=== PATIENT | female | born 1990 | race Caucasian/White ===

== ENCOUNTER 2020-12-19 08:17 | Outpatient (CLI) | payer OTHER | END 2020-12-19 23:59 | disposition home or self-care (01) | LOC: CT 08:17 | PROVIDERS: ATTEND Internal Medicine Nephrology | DX: S00.93XA Contusion of unspecified part of head, initial encounter (principal); G91.9 Hydrocephalus, unspecified; R22.0 Localized swelling, mass and lump, head; X58.XXXA Exposure to other specified factors, initial encounter; Y93.89 Activity, other specified; Y92.89 Other specified places as the place of occurrence of the external cause; Y99.8 Other external cause status | CPT/HCPCS: 70450 ==

== ENCOUNTER 2021-01-18 09:18 | Outpatient (CLI) | payer OTHER | END 2021-01-18 23:59 | disposition home or self-care (01) | LOC: RAD 09:18 | PROVIDERS: ATTEND Internal Medicine Nephrology | DX: G93.89 Other specified disorders of brain (principal); Z98.890 Other specified postprocedural states | CPT/HCPCS: 70450 ==

== ENCOUNTER 2021-02-17 10:53 | Outpatient (CLI) | payer OTHER | END 2021-02-17 23:59 | disposition home or self-care (01) | LOC: CT 10:53 | PROVIDERS: ATTEND Internal Medicine Nephrology | DX: G93.89 Other specified disorders of brain (principal); R56.9 Unspecified convulsions | CPT/HCPCS: 70450 ==

== ENCOUNTER 2021-04-02 08:36 | Outpatient (CLI) | payer OTHER | END 2021-04-02 23:59 | LOC: CT 08:36 | PROVIDERS: ATTEND Internal Medicine Nephrology | DX: N20.0 Calculus of kidney (principal); K44.9 Diaphragmatic hernia without obstruction or gangrene; Z95.828 Presence of other vascular implants and grafts ==

== ENCOUNTER 2021-05-31 | Inpatient (IN) | payer OTHER ==
[2021-06-01 07:55] LABS: HEMATOCRIT 30.1 % (31.2-41.9); MEAN CORPUSCULAR HEMOGLOBIN 29.5 uug (24.7-32.8); MEAN CORPUSCULAR VOLUME 86.7 fL (75.5-95.3); PLATELET COUNT (AUTO) 365 K/uL (179-408)
[2021-06-01 08:15] LABS: CREATININE 0.6 mg/dL (0.6-1.3); MAGNESIUM 1.7 mg/dL (1.8-2.4); PHOSPHOROUS 3.5 mg/dL (2.5-4.9); POTASSIUM 3.9 mmol/L (3.5-5.1)
[2021-06-02] MEDS ORDERED: GUAIFENESIN SUGAR FREE 100 MG/5 ML UDC GT PRN (11:00)
[2021-06-02] MEDS ORDERED: CALCIUM CARBONATE 500 MG TAB.CHEW PO PRN (11:00)
[2021-06-02] MEDS ORDERED: ACETAMINOPHEN 650 MG/20 ML UDC- SA PATIENTS-FEVER ONLY GT PRN (11:00)
[2021-06-02] MEDS ORDERED: HYDROGEN PEROXIDE 3% 118 ML BOTTLE TP PRN (11:00)
[2021-06-02] MEDS ORDERED: POLYVINYL ALCOHOL OPHT DROPS 15 ML BOTTLE EACHEYE PRN (11:00)
[2021-06-02] MEDS: DESMOPRESSIN 0.1 MG TABLET GT SCH ×2 (14:36→21:19)
[2021-06-02] MEDS: DEXAMETHASONE 0.5 MG TABLET GT SCH (17:58)
[2021-06-02] MEDS: HYDROGEN PEROXIDE 3% 118 ML BOTTLE TP SCH (20:56)
[2021-06-02] MEDS: CHLORHEXIDINE GLUCONATE 15 ML MOUTHWASH MM SCH (21:19)
[2021-06-02] MEDS: COD LIVER OIL/ZINC OXIDE OINT 113 GM TUBE TP SCH (21:19)
[2021-06-02] MEDS: levETIRAcetam 500 MG/5 ML LIQUID UDC GT SCH (21:19)
[2021-06-03] MEDS: LEVOTHYROXINE SODIUM 75 MCG TABLET GT SCH (05:47)
[2021-06-03] MEDS: DESMOPRESSIN 0.1 MG TABLET GT SCH ×3 (05:47→21:08)
[2021-06-03 07:32] LABS: HEMATOCRIT 29.4 % (31.2-41.9); MEAN CORPUSCULAR HEMOGLOBIN 29.4 uug (24.7-32.8); MEAN CORPUSCULAR VOLUME 86.5 fL (75.5-95.3); PLATELET COUNT (AUTO) 323 K/uL (179-408)
[2021-06-03 07:53] LABS: CREATININE 0.6 mg/dL (0.6-1.3); MAGNESIUM 1.9 mg/dL (1.8-2.4); PHOSPHOROUS 3.7 mg/dL (2.5-4.9); POTASSIUM 3.9 mmol/L (3.5-5.1)
[2021-06-03] MEDS: levETIRAcetam 500 MG/5 ML LIQUID UDC GT SCH ×2 (08:24→20:41)
[2021-06-03] MEDS: CHLORHEXIDINE GLUCONATE 15 ML MOUTHWASH MM SCH ×2 (08:24→20:41)
[2021-06-03] MEDS: DEXAMETHASONE 0.5 MG TABLET GT SCH ×2 (08:24→18:14)
[2021-06-03] MEDS: COD LIVER OIL/ZINC OXIDE OINT 113 GM TUBE TP SCH ×2 (08:24→20:41)
[2021-06-03] MEDS: HYDROGEN PEROXIDE 3% 118 ML BOTTLE TP SCH ×2 (10:00→21:49)
[2021-06-03] MEDS: MELATONIN 3 MG TABLET GT PRN (20:42)
[2021-06-04] MEDS: DESMOPRESSIN 0.1 MG TABLET GT SCH ×3 (05:56→22:15)
[2021-06-04] MEDS: LEVOTHYROXINE SODIUM 75 MCG TABLET GT SCH (05:56)
[2021-06-04] MEDS: COD LIVER OIL/ZINC OXIDE OINT 113 GM TUBE TP SCH ×2 (09:22→21:00)
[2021-06-04] MEDS: CHLORHEXIDINE GLUCONATE 15 ML MOUTHWASH MM SCH ×2 (09:22→21:00)
[2021-06-04] MEDS: DEXAMETHASONE 0.5 MG TABLET GT SCH ×2 (09:22→18:00)
[2021-06-04] MEDS: levETIRAcetam 500 MG/5 ML LIQUID UDC GT SCH ×2 (09:22→21:00)
[2021-06-04] MEDS: HYDROGEN PEROXIDE 3% 118 ML BOTTLE TP SCH ×2 (10:00→21:15)
[2021-06-04] MEDS: MELATONIN 3 MG TABLET GT PRN (22:15)
[2021-06-05] MEDS: LEVOTHYROXINE SODIUM 75 MCG TABLET GT SCH (05:33)
[2021-06-05] MEDS: DESMOPRESSIN 0.1 MG TABLET GT SCH ×3 (05:33→22:00)
[2021-06-05] MEDS: HYDROGEN PEROXIDE 3% 118 ML BOTTLE TP SCH ×2 (08:42→21:19)
[2021-06-05] MEDS: levETIRAcetam 500 MG/5 ML LIQUID UDC GT SCH ×2 (09:22→20:28)
[2021-06-05] MEDS: CHLORHEXIDINE GLUCONATE 15 ML MOUTHWASH MM SCH ×2 (09:22→20:29)
[2021-06-05] MEDS: DEXAMETHASONE 0.5 MG TABLET GT SCH ×2 (09:22→17:32)
[2021-06-05] MEDS: COD LIVER OIL/ZINC OXIDE OINT 113 GM TUBE TP SCH ×2 (09:22→20:29)
[2021-06-05] MEDS: ACETAMINOPHEN 650 MG/20 ML UDC- SA PATIENTS-PAIN ONLY GT PRN (20:29)
[2021-06-06] MEDS: LEVOTHYROXINE SODIUM 75 MCG TABLET GT SCH (05:19)
[2021-06-06] MEDS: DESMOPRESSIN 0.1 MG TABLET GT SCH ×3 (05:19→21:02)
[2021-06-06 07:08] LABS: HEMATOCRIT 30.1 % (31.2-41.9); MEAN CORPUSCULAR HEMOGLOBIN 29.4 uug (24.7-32.8); MEAN CORPUSCULAR VOLUME 86.1 fL (75.5-95.3); PLATELET COUNT (AUTO) 304 K/uL (179-408)
[2021-06-06 07:34] LABS: CREATININE 0.6 mg/dL (0.6-1.3)
[2021-06-06] MEDS: levETIRAcetam 500 MG/5 ML LIQUID UDC GT SCH ×2 (08:22→21:01)
[2021-06-06] MEDS: CHLORHEXIDINE GLUCONATE 15 ML MOUTHWASH MM SCH ×2 (08:22→21:01)
[2021-06-06] MEDS: COD LIVER OIL/ZINC OXIDE OINT 113 GM TUBE TP SCH ×2 (08:22→21:02)
[2021-06-06] MEDS: DEXAMETHASONE 0.5 MG TABLET GT SCH ×2 (08:22→17:13)
[2021-06-06] MEDS: HYDROGEN PEROXIDE 3% 118 ML BOTTLE TP SCH ×2 (09:00→21:11)
[2021-06-06] MEDS: ACETAMINOPHEN 650 MG/20 ML UDC- SA PATIENTS-PAIN ONLY GT PRN (21:02)
[2021-06-06] MEDS: MELATONIN 3 MG TABLET GT PRN (21:02)
[2021-06-07] MEDS: LEVOTHYROXINE SODIUM 75 MCG TABLET GT SCH (05:33)
[2021-06-07] MEDS: DESMOPRESSIN 0.1 MG TABLET GT SCH ×3 (05:33→21:03)
[2021-06-07] MEDS: HYDROGEN PEROXIDE 3% 118 ML BOTTLE TP SCH ×2 (09:00→21:26)
[2021-06-07] MEDS: COD LIVER OIL/ZINC OXIDE OINT 113 GM TUBE TP SCH ×2 (09:06→21:03)
[2021-06-07] MEDS: CHLORHEXIDINE GLUCONATE 15 ML MOUTHWASH MM SCH ×2 (09:06→21:03)
[2021-06-07] MEDS: levETIRAcetam 500 MG/5 ML LIQUID UDC GT SCH ×2 (09:06→21:03)
[2021-06-07] MEDS: DEXAMETHASONE 0.5 MG TABLET GT SCH ×2 (09:06→17:50)
[2021-06-07] MEDS: ACETAMINOPHEN 650 MG/20 ML UDC- SA PATIENTS-PAIN ONLY GT PRN (21:04)
[2021-06-08] MEDS: DESMOPRESSIN 0.1 MG TABLET GT SCH ×3 (05:29→21:04)
[2021-06-08] MEDS: LEVOTHYROXINE SODIUM 75 MCG TABLET GT SCH (05:29)
[2021-06-08] MEDS: HYDROGEN PEROXIDE 3% 118 ML BOTTLE TP SCH ×2 (09:19→21:17)
[2021-06-08] MEDS: CHLORHEXIDINE GLUCONATE 15 ML MOUTHWASH MM SCH ×2 (09:29→21:03)
[2021-06-08] MEDS: COD LIVER OIL/ZINC OXIDE OINT 113 GM TUBE TP SCH ×2 (09:29→21:03)
[2021-06-08] MEDS: DEXAMETHASONE 0.5 MG TABLET GT SCH ×2 (09:29→17:30)
[2021-06-08] MEDS: levETIRAcetam 500 MG/5 ML LIQUID UDC GT SCH ×2 (09:29→21:03)
[2021-06-08] MEDS ORDERED: CALCIUM CARBONATE 500 MG TAB.CHEW GT PRN (15:30)
[2021-06-08] MEDS: MELATONIN 3 MG TABLET GT PRN (21:04)
[2021-06-09 05:53] LABS: HEMATOCRIT 31.4 % (31.2-41.9); MEAN CORPUSCULAR HEMOGLOBIN 29.2 uug (24.7-32.8); MEAN CORPUSCULAR VOLUME 86.6 fL (75.5-95.3); PLATELET COUNT (AUTO) 275 K/uL (179-408)
[2021-06-09] MEDS: DESMOPRESSIN 0.1 MG TABLET GT SCH ×3 (05:55→21:12)
[2021-06-09] MEDS: LEVOTHYROXINE SODIUM 75 MCG TABLET GT SCH (05:55)
[2021-06-09 06:04] LABS: CREATININE 0.7 mg/dL (0.6-1.3); MAGNESIUM 1.9 mg/dL (1.8-2.4); PHOSPHOROUS 4.2 mg/dL (2.5-4.9); POTASSIUM 4.1 mmol/L (3.5-5.1)
[2021-06-09] MEDS: HYDROGEN PEROXIDE 3% 118 ML BOTTLE TP SCH ×2 (08:25→21:25)
[2021-06-09] MEDS: COD LIVER OIL/ZINC OXIDE OINT 113 GM TUBE TP SCH ×2 (09:20→21:12)
[2021-06-09] MEDS: levETIRAcetam 500 MG/5 ML LIQUID UDC GT SCH ×2 (09:20→21:11)
[2021-06-09] MEDS: DEXAMETHASONE 0.5 MG TABLET GT SCH ×2 (09:20→17:39)
[2021-06-09] MEDS: CHLORHEXIDINE GLUCONATE 15 ML MOUTHWASH MM SCH ×2 (09:20→21:11)
[2021-06-09] MEDS: MELATONIN 3 MG TABLET GT PRN (21:12)
[2021-06-10] MEDS: LEVOTHYROXINE SODIUM 75 MCG TABLET GT SCH (05:57)
[2021-06-10] MEDS: DESMOPRESSIN 0.1 MG TABLET GT SCH ×3 (05:57→21:30)
[2021-06-10] MEDS: HYDROGEN PEROXIDE 3% 118 ML BOTTLE TP SCH ×2 (09:17→21:38)
[2021-06-10] MEDS: DEXAMETHASONE 0.5 MG TABLET GT SCH ×2 (09:23→18:28)
[2021-06-10] MEDS: levETIRAcetam 500 MG/5 ML LIQUID UDC GT SCH ×2 (09:24→21:30)
[2021-06-10] MEDS: CHLORHEXIDINE GLUCONATE 15 ML MOUTHWASH MM SCH (09:25)
[2021-06-10] MEDS: COD LIVER OIL/ZINC OXIDE OINT 113 GM TUBE TP SCH ×2 (09:25→21:30)
[2021-06-10] MEDS: ACETAMINOPHEN 650 MG/20 ML UDC- SA PATIENTS-PAIN ONLY GT PRN (18:46)
[2021-06-10] MEDS: MELATONIN 3 MG TABLET GT PRN (21:31)
[2021-06-11] MEDS: ACETAMINOPHEN 650 MG/20 ML UDC- SA PATIENTS-PAIN ONLY GT PRN ×2 (05:04→20:08)
[2021-06-11] MEDS: DESMOPRESSIN 0.1 MG TABLET GT SCH ×3 (06:04→21:39)
[2021-06-11] MEDS: LEVOTHYROXINE SODIUM 75 MCG TABLET GT SCH (06:04)
[2021-06-11] MEDS: HYDROGEN PEROXIDE 3% 118 ML BOTTLE TP SCH ×2 (09:00→21:06)
[2021-06-11] MEDS: COD LIVER OIL/ZINC OXIDE OINT 113 GM TUBE TP SCH ×2 (09:23→21:39)
[2021-06-11] MEDS: levETIRAcetam 500 MG/5 ML LIQUID UDC GT SCH ×2 (09:23→21:39)
[2021-06-11] MEDS: DEXAMETHASONE 0.5 MG TABLET GT SCH ×2 (09:23→18:15)
[2021-06-11] MEDS: MELATONIN 3 MG TABLET GT PRN (21:41)
[2021-06-12] MEDS: DESMOPRESSIN 0.1 MG TABLET GT SCH ×3 (05:42→21:06)
[2021-06-12] MEDS: LEVOTHYROXINE SODIUM 75 MCG TABLET GT SCH (05:42)
[2021-06-12] MEDS: DEXAMETHASONE 0.5 MG TABLET GT SCH ×2 (08:31→18:20)
[2021-06-12] MEDS: levETIRAcetam 500 MG/5 ML LIQUID UDC GT SCH ×2 (08:31→21:06)
[2021-06-12] MEDS: COD LIVER OIL/ZINC OXIDE OINT 113 GM TUBE TP SCH ×2 (08:32→21:06)
[2021-06-12] MEDS: HYDROGEN PEROXIDE 3% 118 ML BOTTLE TP SCH ×2 (09:00→21:29)
[2021-06-12] MEDS: ACETAMINOPHEN 650 MG/20 ML UDC- SA PATIENTS-PAIN ONLY GT PRN ×2 (10:11→22:35)
[2021-06-12] MEDS: MELATONIN 3 MG TABLET GT PRN (22:34)
[2021-06-13] MEDS: DESMOPRESSIN 0.1 MG TABLET GT SCH ×3 (05:22→20:56)
[2021-06-13] MEDS: LEVOTHYROXINE SODIUM 75 MCG TABLET GT SCH (05:22)
[2021-06-13 07:56] LABS: HEMATOCRIT 29.6 % (31.2-41.9); MEAN CORPUSCULAR HEMOGLOBIN 29.3 uug (24.7-32.8); MEAN CORPUSCULAR VOLUME 87.1 fL (75.5-95.3); PLATELET COUNT (AUTO) 261 K/uL (179-408)
[2021-06-13 08:16] LABS: CREATININE 0.7 mg/dL (0.6-1.3); MAGNESIUM 1.9 mg/dL (1.8-2.4); PHOSPHOROUS 4.3 mg/dL (2.5-4.9); POTASSIUM 3.9 mmol/L (3.5-5.1)
[2021-06-13] MEDS: DEXAMETHASONE 0.5 MG TABLET GT SCH ×2 (08:24→17:06)
[2021-06-13] MEDS: COD LIVER OIL/ZINC OXIDE OINT 113 GM TUBE TP SCH (08:24)
[2021-06-13] MEDS: levETIRAcetam 500 MG/5 ML LIQUID UDC GT SCH ×2 (08:24→20:55)
[2021-06-13] MEDS: HYDROGEN PEROXIDE 3% 118 ML BOTTLE TP SCH ×2 (08:54→21:37)
[2021-06-13] MEDS: REMEDY ESSENTIAL ZINC PASTE 113 GM TP SCH (20:56)
[2021-06-13] MEDS: MELATONIN 3 MG TABLET GT PRN (21:00)
[2021-06-13] MEDS: ACETAMINOPHEN 650 MG/20 ML UDC- SA PATIENTS-PAIN ONLY GT PRN (21:30)
[2021-06-14] MEDS: LEVOTHYROXINE SODIUM 75 MCG TABLET GT SCH (05:06)
[2021-06-14] MEDS: DESMOPRESSIN 0.1 MG TABLET GT SCH ×3 (05:06→21:17)
[2021-06-14] MEDS: levETIRAcetam 500 MG/5 ML LIQUID UDC GT SCH ×2 (08:42→21:17)
[2021-06-14] MEDS: DEXAMETHASONE 0.5 MG TABLET GT SCH ×2 (08:42→17:43)
[2021-06-14] MEDS: REMEDY ESSENTIAL ZINC PASTE 113 GM TP SCH ×2 (08:42→21:17)
[2021-06-14] MEDS: HYDROGEN PEROXIDE 3% 118 ML BOTTLE TP SCH ×2 (09:22→20:52)
[2021-06-14] MEDS: MELATONIN 3 MG TABLET GT PRN (21:17)
[2021-06-15] MEDS: DESMOPRESSIN 0.1 MG TABLET GT SCH ×3 (05:14→21:06)
[2021-06-15] MEDS: LEVOTHYROXINE SODIUM 75 MCG TABLET GT SCH (05:14)
[2021-06-15] MEDS: HYDROGEN PEROXIDE 3% 118 ML BOTTLE TP SCH ×2 (07:56→21:20)
[2021-06-15] MEDS: REMEDY ESSENTIAL ZINC PASTE 113 GM TP SCH ×2 (08:04→20:46)
[2021-06-15] MEDS: levETIRAcetam 500 MG/5 ML LIQUID UDC GT SCH ×2 (08:04→20:45)
[2021-06-15] MEDS: DEXAMETHASONE 0.5 MG TABLET GT SCH ×2 (08:04→17:08)
[2021-06-15 20:15] VITALS: BP 93/53
[2021-06-15] MEDS: MELATONIN 3 MG TABLET GT PRN (21:06)
[2021-06-16] MEDS: DESMOPRESSIN 0.1 MG TABLET GT SCH ×3 (06:06→22:00)
[2021-06-16] MEDS: LEVOTHYROXINE SODIUM 75 MCG TABLET GT SCH (06:06)
[2021-06-16] MEDS: HYDROGEN PEROXIDE 3% 118 ML BOTTLE TP SCH ×2 (08:14→21:39)
[2021-06-16] MEDS: DEXAMETHASONE 0.5 MG TABLET GT SCH ×2 (08:50→18:05)
[2021-06-16] MEDS: levETIRAcetam 500 MG/5 ML LIQUID UDC GT SCH ×2 (08:50→20:54)
[2021-06-16] MEDS: REMEDY ESSENTIAL ZINC PASTE 113 GM TP SCH ×2 (08:54→20:54)
[2021-06-16] MEDS: ACETAMINOPHEN 650 MG/20 ML UDC- SA PATIENTS-PAIN ONLY GT PRN (16:05)
[2021-06-16] MEDS: MELATONIN 3 MG TABLET GT PRN (20:55)
[2021-06-17] MEDS: DESMOPRESSIN 0.1 MG TABLET GT SCH ×3 (06:00→21:02)
[2021-06-17] MEDS: LEVOTHYROXINE SODIUM 75 MCG TABLET GT SCH (06:00)
[2021-06-17] MEDS: HYDROGEN PEROXIDE 3% 118 ML BOTTLE TP SCH ×2 (08:01→20:55)
[2021-06-17] MEDS: levETIRAcetam 500 MG/5 ML LIQUID UDC GT SCH ×2 (08:41→20:59)
[2021-06-17] MEDS: DEXAMETHASONE 0.5 MG TABLET GT SCH ×2 (08:41→18:05)
[2021-06-17] MEDS: REMEDY ESSENTIAL ZINC PASTE 113 GM TP SCH ×2 (08:42→21:01)
[2021-06-17] MEDS: ACETAMINOPHEN 650 MG/20 ML UDC- SA PATIENTS-PAIN ONLY GT PRN ×2 (13:50→21:07)
[2021-06-17] MEDS: MELATONIN 3 MG TABLET GT PRN (21:03)
[2021-06-18] MEDS: DESMOPRESSIN 0.1 MG TABLET GT SCH ×3 (06:24→21:07)
[2021-06-18] MEDS: LEVOTHYROXINE SODIUM 75 MCG TABLET GT SCH (06:24)
[2021-06-18] MEDS: levETIRAcetam 500 MG/5 ML LIQUID UDC GT SCH ×2 (08:26→20:09)
[2021-06-18] MEDS: DEXAMETHASONE 0.5 MG TABLET GT SCH ×2 (08:26→17:29)
[2021-06-18] MEDS: REMEDY ESSENTIAL ZINC PASTE 113 GM TP SCH ×2 (08:27→20:10)
[2021-06-18] MEDS: HYDROGEN PEROXIDE 3% 118 ML BOTTLE TP SCH ×2 (08:30→21:01)
[2021-06-18] MEDS: ACETAMINOPHEN 650 MG/20 ML UDC- SA PATIENTS-PAIN ONLY GT PRN ×2 (15:34→21:07)
[2021-06-18] MEDS: MELATONIN 3 MG TABLET GT PRN (21:07)
[2021-06-19] MEDS: DESMOPRESSIN 0.1 MG TABLET GT SCH ×3 (05:04→22:07)
[2021-06-19] MEDS: LEVOTHYROXINE SODIUM 75 MCG TABLET GT SCH (05:04)
[2021-06-19 08:17] LABS: HEMATOCRIT 28.7 % (31.2-41.9); MEAN CORPUSCULAR HEMOGLOBIN 29.9 uug (24.7-32.8); MEAN CORPUSCULAR VOLUME 87.2 fL (75.5-95.3); PLATELET COUNT (AUTO) 352 K/uL (179-408)
[2021-06-19 08:31] LABS: CREATININE 0.7 mg/dL (0.6-1.3); PHOSPHOROUS 4.1 mg/dL (2.5-4.9); POTASSIUM 3.7 mmol/L (3.5-5.1)
[2021-06-19] MEDS: DEXAMETHASONE 0.5 MG TABLET GT SCH ×2 (08:43→17:59)
[2021-06-19] MEDS: levETIRAcetam 500 MG/5 ML LIQUID UDC GT SCH ×2 (08:45→20:09)
[2021-06-19] MEDS: REMEDY ESSENTIAL ZINC PASTE 113 GM TP SCH ×2 (08:45→20:10)
[2021-06-19] MEDS: HYDROGEN PEROXIDE 3% 118 ML BOTTLE TP SCH ×2 (09:00→20:18)
[2021-06-19] MEDS: ACETAMINOPHEN 650 MG/20 ML UDC- SA PATIENTS-PAIN ONLY GT PRN (14:58)
[2021-06-20] MEDS: DESMOPRESSIN 0.1 MG TABLET GT SCH ×3 (05:41→21:09)
[2021-06-20] MEDS: LEVOTHYROXINE SODIUM 75 MCG TABLET GT SCH (05:41)
[2021-06-20] MEDS: levETIRAcetam 500 MG/5 ML LIQUID UDC GT SCH ×2 (09:15→21:09)
[2021-06-20] MEDS: DEXAMETHASONE 0.5 MG TABLET GT SCH ×2 (09:15→18:15)
[2021-06-20] MEDS: REMEDY ESSENTIAL ZINC PASTE 113 GM TP SCH ×2 (09:16→21:09)
[2021-06-20] MEDS: HYDROGEN PEROXIDE 3% 118 ML BOTTLE TP SCH ×2 (09:43→21:21)
[2021-06-20] MEDS: ACETAMINOPHEN 650 MG/20 ML UDC- SA PATIENTS-PAIN ONLY GT PRN ×2 (14:49→21:10)
[2021-06-20] MEDS: MELATONIN 3 MG TABLET GT PRN (21:10)
[2021-06-21] MEDS: DESMOPRESSIN 0.1 MG TABLET GT SCH ×3 (05:54→21:08)
[2021-06-21] MEDS: LEVOTHYROXINE SODIUM 75 MCG TABLET GT SCH (05:54)
[2021-06-21] MEDS: HYDROGEN PEROXIDE 3% 118 ML BOTTLE TP SCH ×2 (08:09→21:24)
[2021-06-21] MEDS: levETIRAcetam 500 MG/5 ML LIQUID UDC GT SCH ×2 (09:25→20:35)
[2021-06-21] MEDS: DEXAMETHASONE 0.5 MG TABLET GT SCH ×2 (09:25→18:26)
[2021-06-21] MEDS: REMEDY ESSENTIAL ZINC PASTE 113 GM TP SCH ×2 (09:27→20:36)
[2021-06-21] MEDS: ACETAMINOPHEN 650 MG/20 ML UDC- SA PATIENTS-PAIN ONLY GT PRN ×3 (12:22→20:37)
[2021-06-21] MEDS: MELATONIN 3 MG TABLET GT PRN (21:08)
[2021-06-22] MEDS: DESMOPRESSIN 0.1 MG TABLET GT SCH ×3 (05:59→21:55)
[2021-06-22] MEDS: LEVOTHYROXINE SODIUM 75 MCG TABLET GT SCH (05:59)
[2021-06-22] MEDS: levETIRAcetam 500 MG/5 ML LIQUID UDC GT SCH ×2 (08:10→20:39)
[2021-06-22] MEDS: REMEDY ESSENTIAL ZINC PASTE 113 GM TP SCH ×2 (08:10→20:39)
[2021-06-22] MEDS: DEXAMETHASONE 0.5 MG TABLET GT SCH ×2 (08:10→17:00)
[2021-06-22 08:28] VITALS: BP 101/46
[2021-06-22] MEDS: HYDROGEN PEROXIDE 3% 118 ML BOTTLE TP SCH ×2 (09:00→21:28)
[2021-06-22] MEDS: ACETAMINOPHEN 650 MG/20 ML UDC- SA PATIENTS-PAIN ONLY GT PRN (20:39)
[2021-06-22] MEDS: MELATONIN 3 MG TABLET GT PRN (21:20)
[2021-06-23] MEDS: LEVOTHYROXINE SODIUM 75 MCG TABLET GT SCH (05:52)
[2021-06-23] MEDS: DESMOPRESSIN 0.1 MG TABLET GT SCH ×3 (05:52→22:08)
[2021-06-23] MEDS: DEXAMETHASONE 0.5 MG TABLET GT SCH ×2 (08:06→17:47)
[2021-06-23] MEDS: levETIRAcetam 500 MG/5 ML LIQUID UDC GT SCH ×2 (08:06→20:34)
[2021-06-23] MEDS: REMEDY ESSENTIAL ZINC PASTE 113 GM TP SCH ×2 (08:07→20:34)
[2021-06-23] MEDS: HYDROGEN PEROXIDE 3% 118 ML BOTTLE TP SCH ×2 (09:10→21:03)
[2021-06-23] MEDS: MELATONIN 3 MG TABLET GT PRN (20:36)
[2021-06-23] MEDS: ACETAMINOPHEN 650 MG/20 ML UDC- SA PATIENTS-PAIN ONLY GT PRN (20:36)
[2021-06-24] MEDS: LEVOTHYROXINE SODIUM 75 MCG TABLET GT SCH (05:17)
[2021-06-24] MEDS: DESMOPRESSIN 0.1 MG TABLET GT SCH ×3 (05:17→21:37)
[2021-06-24] MEDS: ACETAMINOPHEN 650 MG/20 ML UDC- SA PATIENTS-PAIN ONLY GT PRN ×2 (06:23→21:41)
[2021-06-24] MEDS: DOCUSATE SODIUM 100 MG/10 ML LIQUID UDC GT PRN (07:00)
[2021-06-24] MEDS: DEXAMETHASONE 0.5 MG TABLET GT SCH ×2 (09:05→17:15)
[2021-06-24] MEDS: levETIRAcetam 500 MG/5 ML LIQUID UDC GT SCH ×2 (09:06→21:37)
[2021-06-24] MEDS: REMEDY ESSENTIAL ZINC PASTE 113 GM TP SCH ×2 (09:06→21:37)
[2021-06-24] MEDS: HYDROGEN PEROXIDE 3% 118 ML BOTTLE TP SCH ×2 (09:50→21:19)
[2021-06-25] MEDS: DESMOPRESSIN 0.1 MG TABLET GT SCH ×3 (05:48→21:22)
[2021-06-25] MEDS: LEVOTHYROXINE SODIUM 75 MCG TABLET GT SCH (05:48)
[2021-06-25] MEDS: DEXAMETHASONE 0.5 MG TABLET GT SCH ×2 (08:14→17:34)
[2021-06-25] MEDS: levETIRAcetam 500 MG/5 ML LIQUID UDC GT SCH ×2 (08:14→20:49)
[2021-06-25] MEDS: REMEDY ESSENTIAL ZINC PASTE 113 GM TP SCH ×2 (08:14→20:49)
[2021-06-25] MEDS: HYDROGEN PEROXIDE 3% 118 ML BOTTLE TP SCH ×2 (09:48→20:52)
[2021-06-25] MEDS: MELATONIN 3 MG TABLET GT PRN (21:22)
[2021-06-25] MEDS: ACETAMINOPHEN 650 MG/20 ML UDC- SA PATIENTS-PAIN ONLY GT PRN (21:23)
[2021-06-26] MEDS: LEVOTHYROXINE SODIUM 75 MCG TABLET GT SCH (05:39)
[2021-06-26] MEDS: DESMOPRESSIN 0.1 MG TABLET GT SCH ×3 (05:39→21:35)
[2021-06-26] MEDS: REMEDY ESSENTIAL ZINC PASTE 113 GM TP SCH ×2 (08:29→20:31)
[2021-06-26] MEDS: levETIRAcetam 500 MG/5 ML LIQUID UDC GT SCH ×2 (08:29→20:31)
[2021-06-26] MEDS: DEXAMETHASONE 0.5 MG TABLET GT SCH ×2 (08:29→17:55)
[2021-06-26] MEDS: HYDROGEN PEROXIDE 3% 118 ML BOTTLE TP SCH ×2 (09:28→20:51)
[2021-06-26] MEDS: ACETAMINOPHEN 650 MG/20 ML UDC- SA PATIENTS-PAIN ONLY GT PRN (20:32)
[2021-06-27] MEDS: LEVOTHYROXINE SODIUM 75 MCG TABLET GT SCH (05:49)
[2021-06-27] MEDS: DESMOPRESSIN 0.1 MG TABLET GT SCH ×3 (05:49→21:01)
[2021-06-27] MEDS: HYDROGEN PEROXIDE 3% 118 ML BOTTLE TP SCH ×2 (09:00→20:53)
[2021-06-27] MEDS: levETIRAcetam 500 MG/5 ML LIQUID UDC GT SCH ×2 (09:29→20:50)
[2021-06-27] MEDS: REMEDY ESSENTIAL ZINC PASTE 113 GM TP SCH ×2 (09:29→20:51)
[2021-06-27] MEDS: DEXAMETHASONE 0.5 MG TABLET GT SCH ×2 (09:29→18:16)
[2021-06-27] MEDS: MELATONIN 3 MG TABLET GT PRN (21:01)
[2021-06-28] MEDS: LEVOTHYROXINE SODIUM 75 MCG TABLET GT SCH (06:00)
[2021-06-28] MEDS: DESMOPRESSIN 0.1 MG TABLET GT SCH ×3 (06:00→22:00)
[2021-06-28 07:30] VITALS: BP 107/72
[2021-06-28] MEDS: HYDROGEN PEROXIDE 3% 118 ML BOTTLE TP SCH ×2 (09:00→21:22)
[2021-06-28] MEDS: REMEDY ESSENTIAL ZINC PASTE 113 GM TP SCH ×2 (09:03→20:38)
[2021-06-28] MEDS: DEXAMETHASONE 0.5 MG TABLET GT SCH ×2 (09:03→17:12)
[2021-06-28] MEDS: levETIRAcetam 500 MG/5 ML LIQUID UDC GT SCH ×2 (09:03→20:38)
[2021-06-28] MEDS: DOCUSATE SODIUM 100 MG/10 ML LIQUID UDC GT PRN (18:16)
[2021-06-28] MEDS: MELATONIN 3 MG TABLET GT PRN (20:50)
[2021-06-28] MEDS: ACETAMINOPHEN 650 MG/20 ML UDC- SA PATIENTS-PAIN ONLY GT PRN (20:51)
[2021-06-29] MEDS: LEVOTHYROXINE SODIUM 75 MCG TABLET GT SCH (06:04)
[2021-06-29] MEDS: DESMOPRESSIN 0.1 MG TABLET GT SCH ×3 (06:04→22:33)
[2021-06-29] MEDS: DOCUSATE SODIUM 100 MG/10 ML LIQUID UDC GT PRN (06:32)
[2021-06-29] MEDS: HYDROGEN PEROXIDE 3% 118 ML BOTTLE TP SCH ×2 (09:03→21:20)
[2021-06-29] MEDS: DEXAMETHASONE 0.5 MG TABLET GT SCH ×2 (09:28→17:06)
[2021-06-29] MEDS: levETIRAcetam 500 MG/5 ML LIQUID UDC GT SCH ×2 (09:28→20:09)
[2021-06-29] MEDS: REMEDY ESSENTIAL ZINC PASTE 113 GM TP SCH ×2 (09:28→20:09)
[2021-06-29] MEDS: ACETAMINOPHEN 650 MG/20 ML UDC- SA PATIENTS-PAIN ONLY GT PRN (20:12)
[2021-06-30] MEDS: LEVOTHYROXINE SODIUM 75 MCG TABLET GT SCH (06:21)
[2021-06-30] MEDS: DESMOPRESSIN 0.1 MG TABLET GT SCH ×3 (06:21→22:14)
[2021-06-30] MEDS: DEXAMETHASONE 0.5 MG TABLET GT SCH ×2 (08:25→17:16)
[2021-06-30] MEDS: REMEDY ESSENTIAL ZINC PASTE 113 GM TP SCH ×2 (08:25→20:01)
[2021-06-30] MEDS: levETIRAcetam 500 MG/5 ML LIQUID UDC GT SCH ×2 (08:25→20:01)
[2021-06-30] MEDS: HYDROGEN PEROXIDE 3% 118 ML BOTTLE TP SCH ×2 (08:26→20:17)
[2021-07-01] MEDS: LEVOTHYROXINE SODIUM 75 MCG TABLET GT SCH (05:27)
[2021-07-01] MEDS: DESMOPRESSIN 0.1 MG TABLET GT SCH ×3 (05:27→21:17)
[2021-07-01] MEDS: levETIRAcetam 500 MG/5 ML LIQUID UDC GT SCH ×2 (08:58→21:11)
[2021-07-01] MEDS: REMEDY ESSENTIAL ZINC PASTE 113 GM TP SCH ×2 (08:58→21:11)
[2021-07-01] MEDS: DEXAMETHASONE 0.5 MG TABLET GT SCH ×2 (08:58→17:11)
[2021-07-01] MEDS: HYDROGEN PEROXIDE 3% 118 ML BOTTLE TP SCH ×2 (09:35→20:59)
[2021-07-01] MEDS: MELATONIN 3 MG TABLET GT PRN (21:12)
[2021-07-02] MEDS: DESMOPRESSIN 0.1 MG TABLET GT SCH ×3 (05:54→21:48)
[2021-07-02] MEDS: LEVOTHYROXINE SODIUM 75 MCG TABLET GT SCH (05:54)
[2021-07-02] MEDS: HYDROGEN PEROXIDE 3% 118 ML BOTTLE TP SCH ×2 (08:11→21:11)
[2021-07-02] MEDS: REMEDY ESSENTIAL ZINC PASTE 113 GM TP SCH ×2 (09:02→20:47)
[2021-07-02] MEDS: DEXAMETHASONE 0.5 MG TABLET GT SCH ×2 (09:02→17:54)
[2021-07-02] MEDS: levETIRAcetam 500 MG/5 ML LIQUID UDC GT SCH ×2 (09:02→20:47)
[2021-07-02] MEDS: ACETAMINOPHEN 650 MG/20 ML UDC- SA PATIENTS-PAIN ONLY GT PRN (09:12)
[2021-07-03] MEDS: ACETAMINOPHEN 650 MG/20 ML UDC- SA PATIENTS-PAIN ONLY GT PRN ×3 (02:58→21:21)
[2021-07-03] MEDS: LEVOTHYROXINE SODIUM 75 MCG TABLET GT SCH (05:50)
[2021-07-03] MEDS: DESMOPRESSIN 0.1 MG TABLET GT SCH ×3 (05:50→21:21)
[2021-07-03] MEDS: levETIRAcetam 500 MG/5 ML LIQUID UDC GT SCH ×2 (08:20→21:21)
[2021-07-03] MEDS: DEXAMETHASONE 0.5 MG TABLET GT SCH ×2 (08:20→18:01)
[2021-07-03] MEDS: REMEDY ESSENTIAL ZINC PASTE 113 GM TP SCH ×2 (08:20→21:21)
[2021-07-03] MEDS: HYDROGEN PEROXIDE 3% 118 ML BOTTLE TP SCH ×2 (09:00→20:44)
[2021-07-03 09:04] LABS: HEMATOCRIT 34.8 % (31.2-41.9); MEAN CORPUSCULAR HEMOGLOBIN 28.9 uug (24.7-32.8); MEAN CORPUSCULAR VOLUME 89.2 fL (75.5-95.3); PLATELET COUNT (AUTO) 499 K/uL (179-408)
[2021-07-03 09:17] LABS: CREATININE 0.8 mg/dL (0.6-1.3); MAGNESIUM 2.3 mg/dL (1.8-2.4); PHOSPHOROUS 5.3 mg/dL (2.5-4.9)
[2021-07-03] MEDS: MELATONIN 3 MG TABLET GT PRN (21:21)
[2021-07-04] MEDS: LEVOTHYROXINE SODIUM 75 MCG TABLET GT SCH (05:49)
[2021-07-04] MEDS: DESMOPRESSIN 0.1 MG TABLET GT SCH ×3 (05:49→22:26)
[2021-07-04] MEDS: DOCUSATE SODIUM 100 MG/10 ML LIQUID UDC GT PRN (06:39)
[2021-07-04 06:55] LABS: CREATININE 0.8 mg/dL (0.6-1.3); POTASSIUM 3.7 mmol/L (3.5-5.1)
[2021-07-04] MEDS: HYDROGEN PEROXIDE 3% 118 ML BOTTLE TP SCH ×2 (08:01→21:26)
[2021-07-04] MEDS: DEXAMETHASONE 0.5 MG TABLET GT SCH ×2 (09:05→17:41)
[2021-07-04] MEDS: REMEDY ESSENTIAL ZINC PASTE 113 GM TP SCH ×2 (09:05→20:54)
[2021-07-04] MEDS: levETIRAcetam 500 MG/5 ML LIQUID UDC GT SCH ×2 (09:05→20:54)
[2021-07-04] MEDS: MELATONIN 3 MG TABLET GT PRN (20:54)
[2021-07-04] MEDS: ACETAMINOPHEN 650 MG/20 ML UDC- SA PATIENTS-PAIN ONLY GT PRN (20:56)
[2021-07-05] MEDS: LEVOTHYROXINE SODIUM 75 MCG TABLET GT SCH (06:09)
[2021-07-05] MEDS: DESMOPRESSIN 0.1 MG TABLET GT SCH ×3 (06:09→21:41)
[2021-07-05] MEDS: DEXAMETHASONE 0.5 MG TABLET GT SCH ×2 (08:49→17:42)
[2021-07-05] MEDS: levETIRAcetam 500 MG/5 ML LIQUID UDC GT SCH ×2 (08:50→21:41)
[2021-07-05] MEDS: REMEDY ESSENTIAL ZINC PASTE 113 GM TP SCH ×2 (08:50→21:41)
[2021-07-05] MEDS: ACETAMINOPHEN 650 MG/20 ML UDC- SA PATIENTS-PAIN ONLY GT PRN ×2 (08:52→21:41)
[2021-07-05] MEDS: HYDROGEN PEROXIDE 3% 118 ML BOTTLE TP SCH ×2 (09:51→20:59)
[2021-07-05] MEDS: MELATONIN 3 MG TABLET GT PRN (21:41)
[2021-07-06] MEDS: LEVOTHYROXINE SODIUM 75 MCG TABLET GT SCH (05:57)
[2021-07-06] MEDS: DESMOPRESSIN 0.1 MG TABLET GT SCH ×3 (05:57→21:03)
[2021-07-06] MEDS: DOCUSATE SODIUM 100 MG/10 ML LIQUID UDC GT PRN (05:58)
[2021-07-06] MEDS: HYDROGEN PEROXIDE 3% 118 ML BOTTLE TP SCH ×2 (08:09→20:42)
[2021-07-06] MEDS: DEXAMETHASONE 0.5 MG TABLET GT SCH ×2 (09:02→17:18)
[2021-07-06] MEDS: levETIRAcetam 500 MG/5 ML LIQUID UDC GT SCH ×2 (09:02→21:03)
[2021-07-06] MEDS: REMEDY ESSENTIAL ZINC PASTE 113 GM TP SCH ×2 (09:02→21:03)
[2021-07-06] MEDS: MELATONIN 3 MG TABLET GT PRN (21:03)
[2021-07-07] MEDS: DESMOPRESSIN 0.1 MG TABLET GT SCH ×3 (05:42→21:24)
[2021-07-07] MEDS: LEVOTHYROXINE SODIUM 75 MCG TABLET GT SCH (05:42)
[2021-07-07] MEDS: HYDROGEN PEROXIDE 3% 118 ML BOTTLE TP SCH ×2 (08:16→21:19)
[2021-07-07] MEDS: levETIRAcetam 500 MG/5 ML LIQUID UDC GT SCH ×2 (08:40→21:24)
[2021-07-07] MEDS: DEXAMETHASONE 0.5 MG TABLET GT SCH ×2 (08:40→17:36)
[2021-07-07] MEDS: REMEDY ESSENTIAL ZINC PASTE 113 GM TP SCH ×2 (08:45→21:24)
[2021-07-07] MEDS: MELATONIN 3 MG TABLET GT PRN (21:24)
[2021-07-07] MEDS: ACETAMINOPHEN 650 MG/20 ML UDC- SA PATIENTS-PAIN ONLY GT PRN (21:25)
[2021-07-08] MEDS: LEVOTHYROXINE SODIUM 75 MCG TABLET GT SCH (05:53)
[2021-07-08] MEDS: DESMOPRESSIN 0.1 MG TABLET GT SCH ×3 (05:53→22:05)
[2021-07-08] MEDS: REMEDY ESSENTIAL ZINC PASTE 113 GM TP SCH ×2 (08:17→20:34)
[2021-07-08] MEDS: levETIRAcetam 500 MG/5 ML LIQUID UDC GT SCH ×2 (08:17→20:34)
[2021-07-08] MEDS: DEXAMETHASONE 0.5 MG TABLET GT SCH ×2 (08:17→17:10)
[2021-07-08] MEDS: HYDROGEN PEROXIDE 3% 118 ML BOTTLE TP SCH ×2 (09:00→20:07)
[2021-07-08] MEDS: ACETAMINOPHEN 650 MG/20 ML UDC- SA PATIENTS-PAIN ONLY GT PRN ×2 (14:21→20:44)
[2021-07-08] MEDS: MELATONIN 3 MG TABLET GT PRN (20:44)
[2021-07-09] MEDS: DESMOPRESSIN 0.1 MG TABLET GT SCH ×3 (05:36→21:11)
[2021-07-09] MEDS: LEVOTHYROXINE SODIUM 75 MCG TABLET GT SCH (05:37)
[2021-07-09] MEDS: DEXAMETHASONE 0.5 MG TABLET GT SCH ×2 (08:35→17:09)
[2021-07-09] MEDS: levETIRAcetam 500 MG/5 ML LIQUID UDC GT SCH ×2 (08:35→21:11)
[2021-07-09] MEDS: REMEDY ESSENTIAL ZINC PASTE 113 GM TP SCH ×2 (08:38→21:11)
[2021-07-09] MEDS: HYDROGEN PEROXIDE 3% 118 ML BOTTLE TP SCH ×2 (09:00→21:02)
[2021-07-09] MEDS: ACETAMINOPHEN 650 MG/20 ML UDC- SA PATIENTS-PAIN ONLY GT PRN (16:11)
[2021-07-09] MEDS: MELATONIN 3 MG TABLET GT PRN (21:14)
[2021-07-10] MEDS: ACETAMINOPHEN 650 MG/20 ML UDC- SA PATIENTS-PAIN ONLY GT PRN ×2 (04:00→21:30)
[2021-07-10] MEDS: DESMOPRESSIN 0.1 MG TABLET GT SCH ×3 (05:18→22:21)
[2021-07-10] MEDS: LEVOTHYROXINE SODIUM 75 MCG TABLET GT SCH (05:19)
[2021-07-10 06:30] LABS: HEMATOCRIT 29.7 % (31.2-41.9); MEAN CORPUSCULAR HEMOGLOBIN 29.1 uug (24.7-32.8); MEAN CORPUSCULAR VOLUME 85.9 fL (75.5-95.3); PLATELET COUNT (AUTO) 290 K/uL (179-408)
[2021-07-10 06:43] LABS: CREATININE 0.7 mg/dL (0.6-1.3); MAGNESIUM 1.8 mg/dL (1.8-2.4); PHOSPHOROUS 3.7 mg/dL (2.5-4.9)
[2021-07-10] MEDS: HYDROGEN PEROXIDE 3% 118 ML BOTTLE TP SCH ×2 (09:07→21:56)
[2021-07-10] MEDS: DEXAMETHASONE 0.5 MG TABLET GT SCH ×2 (09:22→18:29)
[2021-07-10] MEDS: REMEDY ESSENTIAL ZINC PASTE 113 GM TP SCH ×2 (09:22→21:00)
[2021-07-10] MEDS: levETIRAcetam 500 MG/5 ML LIQUID UDC GT SCH ×2 (09:22→21:00)
[2021-07-10] MEDS: MELATONIN 3 MG TABLET GT PRN (21:30)
[2021-07-11] MEDS: LEVOTHYROXINE SODIUM 75 MCG TABLET GT SCH (05:53)
[2021-07-11] MEDS: DESMOPRESSIN 0.1 MG TABLET GT SCH ×3 (05:53→22:24)
[2021-07-11] MEDS: HYDROGEN PEROXIDE 3% 118 ML BOTTLE TP SCH ×2 (08:03→20:03)
[2021-07-11] MEDS: REMEDY ESSENTIAL ZINC PASTE 113 GM TP SCH ×2 (09:05→20:48)
[2021-07-11] MEDS: DEXAMETHASONE 0.5 MG TABLET GT SCH ×2 (09:05→18:19)
[2021-07-11] MEDS: levETIRAcetam 500 MG/5 ML LIQUID UDC GT SCH ×2 (09:05→20:48)
[2021-07-11] MEDS: MELATONIN 3 MG TABLET GT PRN (20:50)
[2021-07-11] MEDS: ACETAMINOPHEN 650 MG/20 ML UDC- SA PATIENTS-PAIN ONLY GT PRN (20:51)
[2021-07-12] MEDS: LEVOTHYROXINE SODIUM 75 MCG TABLET GT SCH (05:07)
[2021-07-12] MEDS: DESMOPRESSIN 0.1 MG TABLET GT SCH ×3 (05:07→21:33)
[2021-07-12] MEDS: DEXAMETHASONE 0.5 MG TABLET GT SCH ×2 (09:28→18:03)
[2021-07-12] MEDS: levETIRAcetam 500 MG/5 ML LIQUID UDC GT SCH ×2 (09:28→21:32)
[2021-07-12] MEDS: REMEDY ESSENTIAL ZINC PASTE 113 GM TP SCH ×2 (09:29→21:32)
[2021-07-12] MEDS: ACETAMINOPHEN 650 MG/20 ML UDC- SA PATIENTS-PAIN ONLY GT PRN (09:30)
[2021-07-12] MEDS: HYDROGEN PEROXIDE 3% 118 ML BOTTLE TP SCH ×2 (10:10→20:50)
[2021-07-12] MEDS: MELATONIN 3 MG TABLET GT PRN (21:34)
[2021-07-13] MEDS: LEVOTHYROXINE SODIUM 75 MCG TABLET GT SCH (05:47)
[2021-07-13] MEDS: DESMOPRESSIN 0.1 MG TABLET GT SCH ×3 (05:47→22:06)
[2021-07-13] MEDS: HYDROGEN PEROXIDE 3% 118 ML BOTTLE TP SCH ×2 (09:02→20:53)
[2021-07-13] MEDS: levETIRAcetam 500 MG/5 ML LIQUID UDC GT SCH ×2 (09:26→20:21)
[2021-07-13] MEDS: REMEDY ESSENTIAL ZINC PASTE 113 GM TP SCH ×2 (09:26→20:21)
[2021-07-13] MEDS: DEXAMETHASONE 0.5 MG TABLET GT SCH ×2 (09:26→18:01)
[2021-07-13] MEDS: ACETAMINOPHEN 650 MG/20 ML UDC- SA PATIENTS-PAIN ONLY GT PRN ×2 (09:27→20:22)
[2021-07-13] MEDS: MELATONIN 3 MG TABLET GT PRN (20:23)
[2021-07-14] MEDS: ACETAMINOPHEN 650 MG/20 ML UDC- SA PATIENTS-PAIN ONLY GT PRN (03:02)
[2021-07-14] MEDS: DESMOPRESSIN 0.1 MG TABLET GT SCH ×3 (05:40→21:32)
[2021-07-14] MEDS: LEVOTHYROXINE SODIUM 75 MCG TABLET GT SCH (05:40)
[2021-07-14] MEDS: levETIRAcetam 500 MG/5 ML LIQUID UDC GT SCH ×2 (09:05→20:23)
[2021-07-14] MEDS: DEXAMETHASONE 0.5 MG TABLET GT SCH ×2 (09:05→18:35)
[2021-07-14] MEDS: REMEDY ESSENTIAL ZINC PASTE 113 GM TP SCH ×2 (09:05→20:23)
[2021-07-14] MEDS: HYDROGEN PEROXIDE 3% 118 ML BOTTLE TP SCH ×2 (09:08→20:23)
[2021-07-15] MEDS: ACETAMINOPHEN 650 MG/20 ML UDC- SA PATIENTS-PAIN ONLY GT PRN (03:58)
[2021-07-15] MEDS: LEVOTHYROXINE SODIUM 75 MCG TABLET GT SCH (05:35)
[2021-07-15] MEDS: DESMOPRESSIN 0.1 MG TABLET GT SCH (05:35)
[2021-07-15] MEDS: HYDROGEN PEROXIDE 3% 118 ML BOTTLE TP SCH ×2 (09:00→21:53)
[2021-07-15] MEDS: levETIRAcetam 500 MG/5 ML LIQUID UDC GT SCH (09:08)
[2021-07-15] MEDS: DEXAMETHASONE 0.5 MG TABLET GT SCH (09:08)
[2021-07-15] MEDS: REMEDY ESSENTIAL ZINC PASTE 113 GM TP SCH ×2 (09:08→20:44)
[2021-07-15] MEDS ORDERED: DOCUSATE SODIUM 100 MG/10 ML LIQUID UDC PO PRN (14:46)
[2021-07-15] MEDS ORDERED: ACETAMINOPHEN 650 MG/20 ML UDC- SA PATIENTS-PAIN ONLY PO PRN (15:00)
[2021-07-15] MEDS ORDERED: GUAIFENESIN SUGAR FREE 100 MG/5 ML UDC PO PRN (15:00)
[2021-07-15] MEDS ORDERED: ACETAMINOPHEN 650 MG/20 ML UDC- SA PATIENTS-FEVER ONLY PO PRN (15:00)
[2021-07-15] MEDS: DESMOPRESSIN 0.1 MG TABLET PO SCH ×2 (16:04→22:00)
[2021-07-15] MEDS: DEXAMETHASONE 0.5 MG TABLET PO SCH (18:27)
[2021-07-15] MEDS: levETIRAcetam 500 MG/5 ML LIQUID UDC PO SCH (20:43)
[2021-07-15] MEDS: MELATONIN 3 MG TABLET PO PRN (20:44)
[2021-07-15] MEDS: ACETAMINOPHEN 325 MG TABLET-SA PATIENTS-PAIN ONLY PO PRN (21:00)
[2021-07-15] MEDS ORDERED: ACETAMINOPHEN 325 MG TABLET-SA PATIENTS-FEVER ONLY PO PRN (21:00)
[2021-07-16] MEDS: DESMOPRESSIN 0.1 MG TABLET PO SCH ×3 (05:56→21:28)
[2021-07-16] MEDS: LEVOTHYROXINE SODIUM 75 MCG TABLET PO SCH (05:56)
[2021-07-16] MEDS: HYDROGEN PEROXIDE 3% 118 ML BOTTLE TP SCH ×2 (09:17→21:32)
[2021-07-16] MEDS: DEXAMETHASONE 0.5 MG TABLET PO SCH ×2 (09:19→17:45)
[2021-07-16] MEDS: REMEDY ESSENTIAL ZINC PASTE 113 GM TP SCH ×2 (09:19→21:28)
[2021-07-16] MEDS: levETIRAcetam 500 MG/5 ML LIQUID UDC PO SCH ×2 (09:19→21:28)
[2021-07-17] MEDS: LEVOTHYROXINE SODIUM 75 MCG TABLET PO SCH (06:15)
[2021-07-17] MEDS: DESMOPRESSIN 0.1 MG TABLET PO SCH ×3 (06:15→21:37)
[2021-07-17 06:18] LABS: HEMATOCRIT 35.5 % (31.2-41.9); MEAN CORPUSCULAR HEMOGLOBIN 29.7 uug (24.7-32.8); MEAN CORPUSCULAR VOLUME 88.7 fL (75.5-95.3); PLATELET COUNT (AUTO) 399 K/uL (179-408)
[2021-07-17 06:46] LABS: CREATININE 0.9 mg/dL (0.6-1.3); MAGNESIUM 2.2 mg/dL (1.8-2.4); PHOSPHOROUS 5.5 mg/dL (2.5-4.9); POTASSIUM 3.6 mmol/L (3.5-5.1)
[2021-07-17] MEDS: HYDROGEN PEROXIDE 3% 118 ML BOTTLE TP SCH ×2 (09:28→20:57)
[2021-07-17] MEDS: DEXAMETHASONE 0.5 MG TABLET PO SCH ×2 (09:30→17:42)
[2021-07-17] MEDS: levETIRAcetam 500 MG/5 ML LIQUID UDC PO SCH (09:30)
[2021-07-17] MEDS: REMEDY ESSENTIAL ZINC PASTE 113 GM TP SCH ×2 (09:30→21:37)
[2021-07-17] MEDS: ACETAMINOPHEN 325 MG TABLET-SA PATIENTS-PAIN ONLY PO PRN (16:06)
[2021-07-17] MEDS: levETIRAcetam 500 MG TABLET PO SCH (21:37)
[2021-07-18] MEDS: LEVOTHYROXINE SODIUM 75 MCG TABLET PO SCH (06:03)
[2021-07-18] MEDS: DESMOPRESSIN 0.1 MG TABLET PO SCH ×3 (06:03→22:22)
[2021-07-18 07:11] LABS: CREATININE 0.8 mg/dL (0.6-1.3); POTASSIUM 3.6 mmol/L (3.5-5.1)
[2021-07-18] MEDS: HYDROGEN PEROXIDE 3% 118 ML BOTTLE TP SCH ×2 (08:18→21:00)
[2021-07-18] MEDS: DEXAMETHASONE 0.5 MG TABLET PO SCH ×2 (08:43→17:50)
[2021-07-18] MEDS: levETIRAcetam 500 MG TABLET PO SCH ×2 (08:43→20:44)
[2021-07-18] MEDS: REMEDY ESSENTIAL ZINC PASTE 113 GM TP SCH ×2 (08:43→20:44)
[2021-07-18] MEDS: ACETAMINOPHEN 325 MG TABLET-SA PATIENTS-PAIN ONLY PO PRN (20:45)
[2021-07-18] MEDS: MELATONIN 3 MG TABLET PO PRN (20:45)
[2021-07-19] MEDS: LEVOTHYROXINE SODIUM 75 MCG TABLET PO SCH (06:29)
[2021-07-19] MEDS: DESMOPRESSIN 0.1 MG TABLET PO SCH ×3 (06:29→21:01)
[2021-07-19] MEDS: REMEDY ESSENTIAL ZINC PASTE 113 GM TP SCH ×2 (09:04→20:58)
[2021-07-19] MEDS: levETIRAcetam 500 MG TABLET PO SCH ×2 (09:04→20:58)
[2021-07-19] MEDS: DEXAMETHASONE 0.5 MG TABLET PO SCH ×2 (09:04→18:10)
[2021-07-19] MEDS: HYDROGEN PEROXIDE 3% 118 ML BOTTLE TP SCH ×2 (09:41→21:29)
[2021-07-19] MEDS: ACETAMINOPHEN 325 MG TABLET-SA PATIENTS-PAIN ONLY PO PRN (19:10)
[2021-07-19] MEDS: MELATONIN 3 MG TABLET PO PRN (20:58)
[2021-07-20] MEDS: DESMOPRESSIN 0.1 MG TABLET PO SCH ×3 (05:05→21:03)
[2021-07-20] MEDS: LEVOTHYROXINE SODIUM 75 MCG TABLET PO SCH (05:05)
[2021-07-20] MEDS: HYDROGEN PEROXIDE 3% 118 ML BOTTLE TP SCH ×2 (07:35→21:08)
[2021-07-20 07:51] VITALS: BP 94/60
[2021-07-20] MEDS: levETIRAcetam 500 MG TABLET PO SCH ×2 (09:06→20:49)
[2021-07-20] MEDS: REMEDY ESSENTIAL ZINC PASTE 113 GM TP SCH ×2 (09:06→20:49)
[2021-07-20] MEDS: DEXAMETHASONE 0.5 MG TABLET PO SCH ×2 (09:06→17:42)
[2021-07-20] MEDS: MELATONIN 3 MG TABLET PO PRN (20:50)
[2021-07-20] MEDS: ACETAMINOPHEN 325 MG TABLET-SA PATIENTS-PAIN ONLY PO PRN (20:50)
[2021-07-21] MEDS: LEVOTHYROXINE SODIUM 75 MCG TABLET PO SCH (06:27)
[2021-07-21] MEDS: DESMOPRESSIN 0.1 MG TABLET PO SCH ×3 (06:27→21:03)
[2021-07-21 08:05] VITALS: BP 104/65
[2021-07-21] MEDS: DEXAMETHASONE 0.5 MG TABLET PO SCH ×2 (08:24→17:29)
[2021-07-21] MEDS: levETIRAcetam 500 MG TABLET PO SCH ×2 (08:24→20:56)
[2021-07-21] MEDS: REMEDY ESSENTIAL ZINC PASTE 113 GM TP SCH ×2 (08:26→20:56)
[2021-07-21] MEDS: HYDROGEN PEROXIDE 3% 118 ML BOTTLE TP SCH ×2 (09:00→21:17)
[2021-07-21] MEDS: MELATONIN 3 MG TABLET PO PRN (20:56)
[2021-07-21] MEDS: ACETAMINOPHEN 325 MG TABLET-SA PATIENTS-PAIN ONLY PO PRN (20:57)
[2021-07-22] MEDS: DESMOPRESSIN 0.1 MG TABLET PO SCH ×3 (06:00→21:23)
[2021-07-22] MEDS: LEVOTHYROXINE SODIUM 75 MCG TABLET PO SCH (06:00)
[2021-07-22] MEDS: levETIRAcetam 500 MG TABLET PO SCH ×2 (08:30→21:22)
[2021-07-22] MEDS: DEXAMETHASONE 0.5 MG TABLET PO SCH ×2 (08:30→17:17)
[2021-07-22] MEDS: REMEDY ESSENTIAL ZINC PASTE 113 GM TP SCH ×2 (08:34→21:23)
[2021-07-22] MEDS: HYDROGEN PEROXIDE 3% 118 ML BOTTLE TP SCH ×2 (09:31→20:07)
[2021-07-22] MEDS: ACETAMINOPHEN 325 MG TABLET-SA PATIENTS-PAIN ONLY PO PRN (21:23)
[2021-07-22] MEDS: MELATONIN 3 MG TABLET PO PRN (21:23)
[2021-07-23] MEDS: LEVOTHYROXINE SODIUM 75 MCG TABLET PO SCH (05:51)
[2021-07-23] MEDS: DESMOPRESSIN 0.1 MG TABLET PO SCH ×3 (05:51→21:17)
[2021-07-23] MEDS: HYDROGEN PEROXIDE 3% 118 ML BOTTLE TP SCH ×2 (08:03→20:50)
[2021-07-23] MEDS: REMEDY ESSENTIAL ZINC PASTE 113 GM TP SCH ×2 (08:27→21:17)
[2021-07-23] MEDS: DEXAMETHASONE 0.5 MG TABLET PO SCH ×2 (08:27→17:16)
[2021-07-23] MEDS: levETIRAcetam 500 MG TABLET PO SCH ×2 (08:27→21:17)
[2021-07-23] MEDS: MELATONIN 3 MG TABLET PO PRN (21:17)
[2021-07-23] MEDS: CALCIUM CARBONATE 500 MG TAB.CHEW PO PRN (22:32)
[2021-07-24] MEDS: DESMOPRESSIN 0.1 MG TABLET PO SCH ×3 (06:02→21:01)
[2021-07-24] MEDS: LEVOTHYROXINE SODIUM 75 MCG TABLET PO SCH (06:02)
[2021-07-24] MEDS: DEXAMETHASONE 0.5 MG TABLET PO SCH ×2 (08:38→17:06)
[2021-07-24] MEDS: levETIRAcetam 500 MG TABLET PO SCH ×2 (08:38→21:01)
[2021-07-24] MEDS: REMEDY ESSENTIAL ZINC PASTE 113 GM TP SCH ×2 (09:00→20:55)
[2021-07-24] MEDS: HYDROGEN PEROXIDE 3% 118 ML BOTTLE TP SCH ×2 (09:21→20:57)
[2021-07-24] MEDS: ACETAMINOPHEN 325 MG TABLET-SA PATIENTS-PAIN ONLY PO PRN (19:27)
[2021-07-24] MEDS: CALCIUM CARBONATE 500 MG TAB.CHEW PO PRN (19:27)
[2021-07-24] MEDS: MELATONIN 3 MG TABLET PO PRN (21:01)
[2021-07-25] MEDS: DESMOPRESSIN 0.1 MG TABLET PO SCH ×3 (05:45→21:21)
[2021-07-25] MEDS: LEVOTHYROXINE SODIUM 75 MCG TABLET PO SCH (05:45)
[2021-07-25] MEDS: HYDROGEN PEROXIDE 3% 118 ML BOTTLE TP SCH ×2 (07:47→21:44)
[2021-07-25] MEDS: DEXAMETHASONE 0.5 MG TABLET PO SCH ×2 (08:28→17:35)
[2021-07-25] MEDS: levETIRAcetam 500 MG TABLET PO SCH ×2 (08:28→21:20)
[2021-07-25] MEDS: REMEDY ESSENTIAL ZINC PASTE 113 GM TP SCH ×2 (08:28→21:21)
[2021-07-25 09:50] VITALS: BP 99/61
[2021-07-25] MEDS: CALCIUM CARBONATE 500 MG TAB.CHEW PO PRN (19:30)
[2021-07-25] MEDS: MELATONIN 3 MG TABLET PO PRN (21:21)
[2021-07-26] MEDS: ACETAMINOPHEN 325 MG TABLET-SA PATIENTS-PAIN ONLY PO PRN ×3 (05:00→21:04)
[2021-07-26] MEDS: DESMOPRESSIN 0.1 MG TABLET PO SCH ×3 (05:24→22:02)
[2021-07-26] MEDS: LEVOTHYROXINE SODIUM 75 MCG TABLET PO SCH (05:24)
[2021-07-26] MEDS: DEXAMETHASONE 0.5 MG TABLET PO SCH ×2 (08:25→17:12)
[2021-07-26] MEDS: levETIRAcetam 500 MG TABLET PO SCH ×2 (08:25→20:53)
[2021-07-26] MEDS: REMEDY ESSENTIAL ZINC PASTE 113 GM TP SCH ×2 (08:25→20:53)
[2021-07-26] MEDS: HYDROGEN PEROXIDE 3% 118 ML BOTTLE TP SCH ×2 (09:00→21:23)
[2021-07-26] MEDS: CALCIUM CARBONATE 500 MG TAB.CHEW PO PRN (16:11)
[2021-07-26] MEDS: MELATONIN 3 MG TABLET PO PRN (21:04)
[2021-07-27 06:00] VITALS: BP 107/52
[2021-07-27] MEDS: CALCIUM CARBONATE 500 MG TAB.CHEW PO PRN ×3 (06:00→13:53)
[2021-07-27] MEDS: LEVOTHYROXINE SODIUM 75 MCG TABLET PO SCH (06:09)
[2021-07-27] MEDS: DESMOPRESSIN 0.1 MG TABLET PO SCH ×3 (06:09→22:17)
[2021-07-27] MEDS: DEXAMETHASONE 0.5 MG TABLET PO SCH ×2 (08:18→18:10)
[2021-07-27] MEDS: levETIRAcetam 500 MG TABLET PO SCH ×2 (08:18→20:57)
[2021-07-27] MEDS: REMEDY ESSENTIAL ZINC PASTE 113 GM TP SCH ×2 (08:18→20:57)
[2021-07-27] MEDS: HYDROGEN PEROXIDE 3% 118 ML BOTTLE TP SCH ×2 (10:50→20:08)
[2021-07-27] MEDS: MELATONIN 3 MG TABLET PO PRN (20:57)
[2021-07-28] MEDS: LEVOTHYROXINE SODIUM 75 MCG TABLET PO SCH (05:14)
[2021-07-28] MEDS: DESMOPRESSIN 0.1 MG TABLET PO SCH ×3 (05:14→22:30)
[2021-07-28] MEDS ORDERED: DOCUSATE SODIUM 100 MG CAPSULE PO PRN (07:00)
[2021-07-28] MEDS: DEXAMETHASONE 0.5 MG TABLET PO SCH ×2 (08:16→17:16)
[2021-07-28] MEDS: levETIRAcetam 500 MG TABLET PO SCH ×2 (08:16→20:26)
[2021-07-28] MEDS: REMEDY ESSENTIAL ZINC PASTE 113 GM TP SCH ×2 (08:17→20:26)
[2021-07-28] MEDS: HYDROGEN PEROXIDE 3% 118 ML BOTTLE TP SCH ×2 (09:00→21:00)
[2021-07-28] MEDS ORDERED: MAGNESIUM HYDROXIDE 30 ML LIQUID UDC GT PRN (10:30)
[2021-07-28] MEDS: ACETAMINOPHEN 325 MG TABLET-SA PATIENTS-PAIN ONLY PO PRN (20:28)
[2021-07-28] MEDS: MELATONIN 3 MG TABLET PO PRN (21:00)
[2021-07-29] MEDS: LEVOTHYROXINE SODIUM 75 MCG TABLET PO SCH (05:37)
[2021-07-29] MEDS: DESMOPRESSIN 0.1 MG TABLET PO SCH ×3 (05:37→21:19)
[2021-07-29] MEDS: HYDROGEN PEROXIDE 3% 118 ML BOTTLE TP SCH ×2 (08:06→20:31)
[2021-07-29] MEDS: MIRALAX 17 GM POWD.PACK PO SCH (09:00)
[2021-07-29] MEDS: levETIRAcetam 500 MG TABLET PO SCH ×2 (09:00→21:18)
[2021-07-29] MEDS: DEXAMETHASONE 0.5 MG TABLET PO SCH ×2 (09:00→18:28)
[2021-07-29] MEDS: REMEDY ESSENTIAL ZINC PASTE 113 GM TP SCH ×2 (09:00→21:19)
[2021-07-29] MEDS ORDERED: FLEET ENEMA 133 ML BOTTLE RC PRN (17:45)
[2021-07-29] MEDS: BISACODYL 10 MG SUPP.RECT RC PRN ×2 (18:00→18:44)
[2021-07-29] MEDS: MELATONIN 3 MG TABLET PO PRN (21:19)
[2021-07-30] MEDS: LEVOTHYROXINE SODIUM 75 MCG TABLET PO SCH (06:03)
[2021-07-30] MEDS: DESMOPRESSIN 0.1 MG TABLET PO SCH ×3 (06:03→22:25)
[2021-07-30] MEDS: HYDROGEN PEROXIDE 3% 118 ML BOTTLE TP SCH ×2 (07:32→19:46)
[2021-07-30] MEDS: DEXAMETHASONE 0.5 MG TABLET PO SCH ×2 (08:30→18:19)
[2021-07-30] MEDS: MIRALAX 17 GM POWD.PACK PO SCH (08:31)
[2021-07-30] MEDS: levETIRAcetam 500 MG TABLET PO SCH ×2 (08:31→21:00)
[2021-07-30] MEDS: REMEDY ESSENTIAL ZINC PASTE 113 GM TP SCH ×2 (08:32→21:00)
[2021-07-30] MEDS: ACETAMINOPHEN 325 MG TABLET-SA PATIENTS-PAIN ONLY PO PRN (20:00)
[2021-07-30] MEDS: MELATONIN 3 MG TABLET PO PRN (22:00)
[2021-07-30] MEDS: CALCIUM CARBONATE 500 MG TAB.CHEW PO PRN (22:15)
[2021-07-31] MEDS: ACETAMINOPHEN 325 MG TABLET-SA PATIENTS-PAIN ONLY PO PRN (05:30)
[2021-07-31] MEDS: LEVOTHYROXINE SODIUM 75 MCG TABLET PO SCH (05:51)
[2021-07-31] MEDS: DESMOPRESSIN 0.1 MG TABLET PO SCH ×3 (05:51→22:07)
[2021-07-31] MEDS: levETIRAcetam 500 MG TABLET PO SCH ×2 (08:59→21:00)
[2021-07-31] MEDS: REMEDY ESSENTIAL ZINC PASTE 113 GM TP SCH ×2 (08:59→21:00)
[2021-07-31] MEDS: DEXAMETHASONE 0.5 MG TABLET PO SCH ×2 (08:59→17:16)
[2021-07-31] MEDS: MIRALAX 17 GM POWD.PACK PO SCH (08:59)
[2021-07-31] MEDS: HYDROGEN PEROXIDE 3% 118 ML BOTTLE TP SCH ×2 (09:00→20:58)
[2021-07-31] MEDS: MELATONIN 3 MG TABLET PO PRN (21:30)
[2021-08-01] MEDS: DESMOPRESSIN 0.1 MG TABLET PO SCH ×3 (05:04→21:23)
[2021-08-01] MEDS: LEVOTHYROXINE SODIUM 75 MCG TABLET PO SCH (05:04)
[2021-08-01] MEDS: ACETAMINOPHEN 325 MG TABLET-SA PATIENTS-PAIN ONLY PO PRN ×2 (05:05→21:24)
[2021-08-01] MEDS: HYDROGEN PEROXIDE 3% 118 ML BOTTLE TP SCH ×2 (08:04→19:12)
[2021-08-01] MEDS: REMEDY ESSENTIAL ZINC PASTE 113 GM TP SCH ×2 (09:00→21:00)
[2021-08-01] MEDS: levETIRAcetam 500 MG TABLET PO SCH ×2 (09:00→21:00)
[2021-08-01] MEDS: MIRALAX 17 GM POWD.PACK PO SCH (09:00)
[2021-08-01] MEDS: DEXAMETHASONE 0.5 MG TABLET PO SCH ×2 (09:00→17:55)
[2021-08-01] MEDS: MELATONIN 3 MG TABLET PO PRN (21:23)
[2021-08-02] MEDS: LEVOTHYROXINE SODIUM 75 MCG TABLET PO SCH (05:53)
[2021-08-02] MEDS: DESMOPRESSIN 0.1 MG TABLET PO SCH ×3 (05:53→21:56)
[2021-08-02] MEDS: HYDROGEN PEROXIDE 3% 118 ML BOTTLE TP SCH ×2 (08:09→21:38)
[2021-08-02] MEDS: MIRALAX 17 GM POWD.PACK PO SCH (08:42)
[2021-08-02] MEDS: REMEDY ESSENTIAL ZINC PASTE 113 GM TP SCH ×2 (08:42→21:00)
[2021-08-02] MEDS: DEXAMETHASONE 0.5 MG TABLET PO SCH ×2 (08:42→17:11)
[2021-08-02] MEDS: levETIRAcetam 500 MG TABLET PO SCH ×2 (08:42→21:00)
[2021-08-02] MEDS: ACETAMINOPHEN 325 MG TABLET-SA PATIENTS-PAIN ONLY PO PRN (16:05)
[2021-08-02] MEDS: MELATONIN 3 MG TABLET PO PRN (21:56)
[2021-08-03] MEDS: DESMOPRESSIN 0.1 MG TABLET PO SCH ×3 (06:09→21:00)
[2021-08-03] MEDS: LEVOTHYROXINE SODIUM 75 MCG TABLET PO SCH (06:09)
[2021-08-03 06:19] LABS: HEMATOCRIT 31.3 % (31.2-41.9); MEAN CORPUSCULAR HEMOGLOBIN 29.5 uug (24.7-32.8); MEAN CORPUSCULAR VOLUME 86.7 fL (75.5-95.3); PLATELET COUNT (AUTO) 388 K/uL (179-408)
[2021-08-03 06:26] LABS: CREATININE 0.7 mg/dL (0.6-1.3); MAGNESIUM 2.2 mg/dL (1.8-2.4); PHOSPHOROUS 4.5 mg/dL (2.5-4.9); POTASSIUM 3.8 mmol/L (3.5-5.1)
[2021-08-03] MEDS: levETIRAcetam 500 MG TABLET PO SCH ×2 (08:42→20:58)
[2021-08-03] MEDS: REMEDY ESSENTIAL ZINC PASTE 113 GM TP SCH ×2 (08:42→20:58)
[2021-08-03] MEDS: MIRALAX 17 GM POWD.PACK PO SCH (08:42)
[2021-08-03] MEDS: DEXAMETHASONE 0.5 MG TABLET PO SCH ×2 (08:42→18:01)
[2021-08-03] MEDS: HYDROGEN PEROXIDE 3% 118 ML BOTTLE TP SCH ×2 (09:00→21:39)
[2021-08-03] MEDS: MELATONIN 3 MG TABLET PO PRN (20:58)
[2021-08-03] MEDS: ACETAMINOPHEN 325 MG TABLET-SA PATIENTS-PAIN ONLY PO PRN (20:59)
[2021-08-04] MEDS: DESMOPRESSIN 0.1 MG TABLET PO SCH ×3 (06:09→21:19)
[2021-08-04] MEDS: LEVOTHYROXINE SODIUM 75 MCG TABLET PO SCH (06:10)
[2021-08-04] MEDS: DEXAMETHASONE 0.5 MG TABLET PO SCH ×2 (08:16→17:11)
[2021-08-04] MEDS: REMEDY ESSENTIAL ZINC PASTE 113 GM TP SCH ×2 (08:17→21:19)
[2021-08-04] MEDS: levETIRAcetam 500 MG TABLET PO SCH ×2 (08:17→21:19)
[2021-08-04] MEDS: MIRALAX 17 GM POWD.PACK PO SCH (08:17)
[2021-08-04] MEDS: HYDROGEN PEROXIDE 3% 118 ML BOTTLE TP SCH ×2 (08:22→21:12)
[2021-08-04] MEDS: MELATONIN 3 MG TABLET PO PRN (21:19)
[2021-08-05] MEDS: DESMOPRESSIN 0.1 MG TABLET PO SCH ×3 (06:00→21:08)
[2021-08-05] MEDS: LEVOTHYROXINE SODIUM 75 MCG TABLET PO SCH (06:00)
[2021-08-05] MEDS: HYDROGEN PEROXIDE 3% 118 ML BOTTLE TP SCH ×2 (08:19→20:04)
[2021-08-05] MEDS: levETIRAcetam 500 MG TABLET PO SCH ×2 (08:29→21:08)
[2021-08-05] MEDS: DEXAMETHASONE 0.5 MG TABLET PO SCH ×2 (08:29→17:32)
[2021-08-05] MEDS: REMEDY ESSENTIAL ZINC PASTE 113 GM TP SCH ×2 (08:30→21:08)
[2021-08-05 10:11] LABS: *URINE HCG, QUAL NEG (NEGATIVE)
[2021-08-05 13:00] VITALS: BP 99/70
[2021-08-05] MEDS: MIRALAX 17 GM POWD.PACK PO SCH (13:20)
[2021-08-05] MEDS: NS IV SCH (18:00)
[2021-08-05] MEDS: DEXTROSE IV SCH (18:00)
[2021-08-06] MEDS: DESMOPRESSIN 0.1 MG TABLET PO SCH ×3 (06:26→21:17)
[2021-08-06] MEDS: LEVOTHYROXINE SODIUM 75 MCG TABLET PO SCH (06:26)
[2021-08-06] MEDS: levETIRAcetam 500 MG TABLET PO SCH ×2 (08:51→21:16)
[2021-08-06] MEDS: DEXAMETHASONE 0.5 MG TABLET PO SCH ×2 (08:51→17:54)
[2021-08-06] MEDS: REMEDY ESSENTIAL ZINC PASTE 113 GM TP SCH ×2 (08:52→21:17)
[2021-08-06] MEDS: MIRALAX 17 GM POWD.PACK PO SCH (08:52)
[2021-08-06] MEDS: HYDROGEN PEROXIDE 3% 118 ML BOTTLE TP SCH ×2 (09:49→21:32)
[2021-08-06] MEDS: NS IV SCH (11:53)
[2021-08-06] MEDS: DEXTROSE IV SCH (11:53)
[2021-08-07] MEDS: DESMOPRESSIN 0.1 MG TABLET PO SCH ×3 (05:35→21:24)
[2021-08-07] MEDS: LEVOTHYROXINE SODIUM 75 MCG TABLET PO SCH (05:35)
[2021-08-07 06:35] LABS: HEMATOCRIT 31.8 % (31.2-41.9); MEAN CORPUSCULAR HEMOGLOBIN 29.2 uug (24.7-32.8); MEAN CORPUSCULAR VOLUME 86.8 fL (75.5-95.3); PLATELET COUNT (AUTO) 398 K/uL (179-408)
[2021-08-07 06:44] LABS: CREATININE 0.7 mg/dL (0.6-1.3); PHOSPHOROUS 5.2 mg/dL (2.5-4.9); POTASSIUM 3.5 mmol/L (3.5-5.1)
[2021-08-07] MEDS: HYDROGEN PEROXIDE 3% 118 ML BOTTLE TP SCH ×2 (09:00→21:24)
[2021-08-07] MEDS: DEXAMETHASONE 0.5 MG TABLET PO SCH ×2 (09:06→18:25)
[2021-08-07] MEDS: REMEDY ESSENTIAL ZINC PASTE 113 GM TP SCH ×2 (09:06→21:24)
[2021-08-07] MEDS: levETIRAcetam 500 MG TABLET PO SCH ×2 (09:06→21:24)
[2021-08-07] MEDS: MIRALAX 17 GM POWD.PACK PO SCH (09:06)
[2021-08-07] MEDS: MELATONIN 3 MG TABLET PO PRN (21:25)
[2021-08-07] MEDS: ACETAMINOPHEN 325 MG TABLET-SA PATIENTS-PAIN ONLY PO PRN (21:25)
[2021-08-08] MEDS: LEVOTHYROXINE SODIUM 75 MCG TABLET PO SCH (05:22)
[2021-08-08] MEDS: DESMOPRESSIN 0.1 MG TABLET PO SCH ×3 (05:22→21:16)
[2021-08-08] MEDS: HYDROGEN PEROXIDE 3% 118 ML BOTTLE TP SCH ×2 (09:17→21:10)
[2021-08-08] MEDS: DEXAMETHASONE 0.5 MG TABLET PO SCH ×2 (09:22→17:15)
[2021-08-08] MEDS: MIRALAX 17 GM POWD.PACK PO SCH (09:23)
[2021-08-08] MEDS: levETIRAcetam 500 MG TABLET PO SCH ×2 (09:23→20:05)
[2021-08-08] MEDS: REMEDY ESSENTIAL ZINC PASTE 113 GM TP SCH ×2 (09:23→20:07)
[2021-08-08] MEDS: ACETAMINOPHEN 325 MG TABLET-SA PATIENTS-PAIN ONLY PO PRN (17:15)
[2021-08-09] MEDS ORDERED: ACET-2812 PO (00:07)
[2021-08-09] MEDS ORDERED: MELA3TAB41 PO (00:07)
[2021-08-09] MEDS ORDERED: DOCU100C36 PO (00:07)
[2021-08-09] MEDS ORDERED: [UNRECOGNIZED DRUG - CODE] EACHEYE (00:07)
[2021-08-09] MEDS ORDERED: DEXA0.5T15 PO ×2 (00:07)
[2021-08-09] MEDS ORDERED: NA P133E RC (00:07)
[2021-08-09] MEDS ORDERED: LEVE500T9 PO (00:07)
[2021-08-09] MEDS ORDERED: BISA10SU11 RC (00:07)
[2021-08-09] MEDS ORDERED: GUAI100S9 PO (00:07)
[2021-08-09] MEDS ORDERED: LEVO75TA7 PO (00:07)
[2021-08-09] MEDS ORDERED: HYDR1SOL TP ×2 (00:07)
[2021-08-09] MEDS ORDERED: POLY17PO4 PO (00:07)
[2021-08-09] MEDS ORDERED: TUBE5VIA2 ID (00:07)
[2021-08-09] MEDS ORDERED: MAGN400O6 PO (00:07)
[2021-08-09] MEDS ORDERED: DESM0.1T PO (00:07)
[2021-08-09] MEDS ORDERED: CALC-494 PO (00:07)
[2022-05-19] MEDS ORDERED: TUBERCULIN,PURIF.PROT.DERIV. 5 TU/0.1 ML TEST ID SCH (09:00)
== END 2021-08-08 22:05 | DRG 133 ==
LOC: SA
PROVIDERS: ADMIT Internal Medicine Nephrology; ATTEND Internal Medicine Nephrology
PROC: 0DP68UZ Removal of Feeding Device from Stomach, Via Natural or Artificial Opening Endoscopic (ICD-10-PCS; principal; 2021-08-05)
DX: J96.21 Acute and chronic respiratory failure with hypoxia (principal); G93.49 Other encephalopathy; E23.2 Diabetes insipidus; G93.89 Other specified disorders of brain; E23.0 Hypopituitarism; I69.354 Hemiplegia and hemiparesis following cerebral infarction affecting left non-dominant side; I69.298 Other sequelae of other nontraumatic intracranial hemorrhage; Z86.718 Personal history of other venous thrombosis and embolism; I95.1 Orthostatic hypotension; E03.9 Hypothyroidism, unspecified; I69.398 Other sequelae of cerebral infarction; R13.10 Dysphagia, unspecified; K59.00 Constipation, unspecified; Z86.011 Personal history of benign neoplasm of the brain; Z79.890 Hormone replacement therapy; Z93.1 Gastrostomy status; D64.9 Anemia, unspecified; Z20.822 Contact with and (suspected) exposure to COVID-19; Z79.52 Long term (current) use of systemic steroids; Z93.0 Tracheostomy status; Z79.899 Other long term (current) drug therapy; Z95.828 Presence of other vascular implants and grafts; Z86.69 Personal history of other diseases of the nervous system and sense organs; Z86.16 Personal history of COVID-19; Z87.01 Personal history of pneumonia (recurrent)
CPT/HCPCS: 36415; 83735; 84100; 84703; 85025; 97161; 97535-GO-CO; A4663; C1758; J7042; J8540; U0003

== ENCOUNTER 2021-08-05 08:18 | Day surgery (SDC) | payer OTHER | END 2021-08-05 13:00 | disposition home or self-care (01) | LOC: DS 08:18 | PROVIDERS: ATTEND Internal Medicine | DX: R13.10 Dysphagia, unspecified (principal); K31.89 Other diseases of stomach and duodenum; D64.9 Anemia, unspecified; Z79.899 Other long term (current) drug therapy; Z98.890 Other specified postprocedural states | CPT/HCPCS: 43247; J7120; A4217 ==

== ENCOUNTER 2021-08-08 14:46 | Inpatient (IN) | payer OTHER ==
[~2021-08-08] VITALS: Ht 160 cm; Wt 78.5 kg
[2021-08-08 21:45] VITALS: BP 100/65
[2021-08-09] MEDS ORDERED: MELA3TAB41 PO (00:07)
[2021-08-09] MEDS ORDERED: MAGN400O6 PO (00:07)
[2021-08-09] MEDS ORDERED: CALC-494 PO (00:07)
[2021-08-09] MEDS ORDERED: LEVE500T9 PO (00:07)
[2021-08-09] MEDS ORDERED: BISA10SU11 RC (00:07)
[2021-08-09] MEDS ORDERED: GUAI100S9 PO (00:07)
[2021-08-09] MEDS ORDERED: DOCU100C36 PO (00:07)
[2021-08-09] MEDS ORDERED: TUBE5VIA2 ID (00:07)
[2021-08-09] MEDS ORDERED: DEXA0.5T15 PO ×2 (00:07)
[2021-08-09] MEDS ORDERED: DESM0.1T PO (00:07)
[2021-08-09] MEDS ORDERED: LEVO75TA7 PO (00:07)
[2021-08-09] MEDS ORDERED: NA P133E RC (00:07)
[2021-08-09] MEDS ORDERED: [UNRECOGNIZED DRUG - CODE] EACHEYE (00:07)
[2021-08-09] MEDS ORDERED: POLY17PO4 PO (00:07)
[2021-08-09] MEDS ORDERED: ACET-2812 PO (00:07)
[2021-08-09] MEDS ORDERED: HYDR1SOL TP ×2 (00:07)
--- NOTE | 2021-08-09 02:33 | NUR ---
Admitted pt to rehab from subacute floor accompanied by Aye TREVIÑO and Kelly PAIGE via bed. She is alert and oriented x4, able to make needs known. Denies pain and discomfort at this time. VS WNL. Admission process observed, full body assessment done with pictures taken and placed in chart, belongings list filled up. She is incontinent to B&B. Noted with L sided weakness. All needs attended. Call light placed within reach, oriented to room. Will continue to monitor.
[2021-08-09 04:55] VITALS: BP 99/65
[2021-08-09 05:52] LABS: HEMATOCRIT 31.3 % (31.2-41.9); MEAN CORPUSCULAR HEMOGLOBIN 29.1 uug (24.7-32.8); MEAN CORPUSCULAR VOLUME 86.9 fL (75.5-95.3); PLATELET COUNT (AUTO) 389 K/uL (179-408)
[2021-08-09 06:00] LABS: CREATININE 0.6 mg/dL (0.6-1.3); MAGNESIUM 1.9 mg/dL (1.8-2.4); PHOSPHOROUS 3.6 mg/dL (2.5-4.9); POTASSIUM 3.9 mmol/L (3.5-5.1)
[2021-08-09] MEDS: LEVOTHYROXINE SODIUM 75 MCG TABLET PO SCH (06:01)
[2021-08-09] MEDS ORDERED: DOCUSATE SODIUM 100 MG CAPSULE PO PRN (07:45)
[2021-08-09] MEDS ORDERED: ACETAMINOPHEN 325 MG TABLET-SA PATIENTS-FEVER ONLY PO PRN (07:45)
[2021-08-09] MEDS ORDERED: GUAIFENESIN SUGAR FREE 100 MG/5 ML UDC PO PRN (07:45)
[2021-08-09] MEDS ORDERED: CALCIUM CARBONATE 500 MG TAB.CHEW PO PRN ×2 (07:45)
[2021-08-09] MEDS ORDERED: HYDROGEN PEROXIDE 3% 118 ML BOTTLE TP PRN (07:45)
[2021-08-09] MEDS ORDERED: POLYVINYL ALCOHOL OPHT DROPS 15 ML BOTTLE EACHEYE PRN (07:45)
[2021-08-09] MEDS ORDERED: FLEET ENEMA 133 ML BOTTLE RC PRN (07:45)
[2021-08-09] MEDS ORDERED: MAGNESIUM HYDROXIDE 30 ML LIQUID UDC GT PRN (07:45)
[2021-08-09] MEDS ORDERED: BISACODYL 10 MG SUPP.RECT RC PRN (07:45)
[2021-08-09 08:13] VITALS: BP 93/59
[2021-08-09] MEDS: DESMOPRESSIN 0.1 MG TABLET PO SCH ×3 (08:31→21:33)
[2021-08-09] MEDS: levETIRAcetam 500 MG TABLET PO SCH ×2 (08:31→20:39)
[2021-08-09] MEDS: DEXAMETHASONE 0.5 MG TABLET PO SCH ×3 (08:31→18:08)
[2021-08-09] MEDS: REMEDY ESSENTIAL ZINC PASTE 113 GM TOP SCH ×2 (08:32→20:41)
[2021-08-09] MEDS: MIRALAX 17 GM POWD.PACK PO SCH (08:34)
[2021-08-09] MEDS: HYDROGEN PEROXIDE 3% 118 ML BOTTLE TP SCH ×2 (08:34→20:53)
[2021-08-09 16:29] VITALS: BP 101/60
--- NOTE | 2021-08-09 19:00 | NUR ---
Receievd patient on bed, alert, oriented x4, not in respiratory distress, with left sided weakness noted. No complaint of pain or discomfort.
[2021-08-09 20:39] VITALS: BP 95/55
[2021-08-09] MEDS: ACETAMINOPHEN 325 MG TABLET PO PRN (20:50)
--- NOTE | 2021-08-09 21:00 | NUR ---
Due medication given as ordered, tolerated whole pill.
[2021-08-09] MEDS: MELATONIN 3 MG TABLET PO PRN (21:06)
[2021-08-09] MEDS ORDERED: DESMOPRESSIN 0.1 MG TABLET ONE ×2 (21:28→21:45)
[2021-08-10 04:38] VITALS: BP 98/60
[2021-08-10] MEDS: LEVOTHYROXINE SODIUM 75 MCG TABLET PO SCH (06:15)
[2021-08-10] MEDS: DESMOPRESSIN 0.1 MG TABLET PO SCH ×3 (06:16→21:03)
--- NOTE | 2021-08-10 06:27 | NUR ---
Patient able to slept well for 6-7 hrs, no complaint of pain or discomfort. Patient in fair condition.
[2021-08-10 06:42] LABS: HEMATOCRIT 32.1 % (31.2-41.9); MEAN CORPUSCULAR HEMOGLOBIN 28.9 uug (24.7-32.8); MEAN CORPUSCULAR VOLUME 86.6 fL (75.5-95.3); PLATELET COUNT (AUTO) 395 K/uL (179-408)
[2021-08-10 07:29] LABS: CREATININE 0.6 mg/dL (0.6-1.3); PHOSPHOROUS 3.4 mg/dL (2.5-4.9)
[2021-08-10 08:00] VITALS: BP 94/54
[2021-08-10] MEDS: DEXAMETHASONE 0.5 MG TABLET PO SCH ×2 (09:59→17:45)
[2021-08-10] MEDS: MIRALAX 17 GM POWD.PACK PO SCH (09:59)
[2021-08-10] MEDS: HYDROGEN PEROXIDE 3% 118 ML BOTTLE TP SCH ×2 (09:59→20:52)
[2021-08-10] MEDS: levETIRAcetam 500 MG TABLET PO SCH ×2 (09:59→20:51)
[2021-08-10] MEDS: REMEDY ESSENTIAL ZINC PASTE 113 GM TOP SCH ×2 (09:59→20:52)
[2021-08-10 16:00] VITALS: BP 103/53
[2021-08-10] MEDS: ACETAMINOPHEN 325 MG TABLET PO PRN (17:48)
--- NOTE | 2021-08-10 19:00 | NUR ---
Received patient on bed, alert, no shortness of breath noted, able to understand simple directions, able to make her needs known. Call light placed within reach. No complaint of pain.
[2021-08-10 20:38] VITALS: BP 107/62
[2021-08-10] MEDS: MELATONIN 3 MG TABLET PO PRN (20:53)
[2021-08-11 04:38] VITALS: BP 103/64
--- NOTE | 2021-08-11 06:21 | NUR ---
Patient slept well at night. No complaint of pain. Due meds given as ordered. Repositioned for comfort. Patient in fair condition.
[2021-08-11] MEDS: LEVOTHYROXINE SODIUM 75 MCG TABLET PO SCH (06:32)
[2021-08-11] MEDS: DESMOPRESSIN 0.1 MG TABLET PO SCH ×3 (06:33→21:40)
[2021-08-11 08:09] VITALS: BP 103/60
[2021-08-11] MEDS: REMEDY ESSENTIAL ZINC PASTE 113 GM TOP SCH ×2 (08:12→20:43)
[2021-08-11] MEDS: levETIRAcetam 500 MG TABLET PO SCH ×2 (08:12→20:32)
[2021-08-11] MEDS: MIRALAX 17 GM POWD.PACK PO SCH (08:12)
[2021-08-11] MEDS: DEXAMETHASONE 0.5 MG TABLET PO SCH ×2 (08:12→17:12)
[2021-08-11] MEDS: HYDROGEN PEROXIDE 3% 118 ML BOTTLE TP SCH ×2 (08:13→20:38)
[2021-08-11] MEDS: ACETAMINOPHEN 325 MG TABLET PO PRN (08:13)
--- NOTE | 2021-08-11 09:19 | NUR ---
INDIVIDUALIZED PLAN OF CARE
[2021-08-11 15:50] VITALS: BP 94/63
--- NOTE | 2021-08-11 18:44 | NUR ---
Patient remained stable. Given 1x prn pain medication. skin intact. Aspiration precaution maintained. frequent visual checks done. safety measures maintained. all due meds given. all needs attended. kept call light within reach. no other concern identified. will endorse to the next shift for continuity of care.
--- NOTE | 2021-08-11 19:00 | NUR ---
Received patient on bed, alert, no signs of respiratory distress, on room air, no complaint of any discomfort or pain at this time.
[2021-08-11 20:12] VITALS: BP 91/54
[2021-08-11] MEDS: REMEDY ESSENTIAL ZINC PASTE 113 GM TOP PRN (20:37)
[2021-08-11] MEDS: MELATONIN 3 MG TABLET PO PRN (20:43)
--- NOTE | 2021-08-11 21:00 | NUR ---
Patient's temperature 94.6, rechecked 2x still on the low side. No unusualities noted, patient stated she`s feeling fine. Provided with warm blanket and hot tea, room temperature adjusted per patient request. Patient in fair condition. Patient`s mother called informed her about patient`s latest temperature, and patient has no discomfort and currently drinking her tea.
--- NOTE | 2021-08-12 04:00 | NUR ---
Patient slept well at night. Temperature 97.3, no complaint of any pain or discomfort. Diaper changed, perineal care done. Repositioned for comfort. Patient in fair condition. For continuity of care.
[2021-08-12 04:18] VITALS: BP 94/53
[2021-08-12] MEDS: ACETAMINOPHEN 325 MG TABLET PO PRN (05:23)
[2021-08-12] MEDS: DESMOPRESSIN 0.1 MG TABLET PO SCH ×3 (05:31→21:02)
[2021-08-12] MEDS: LEVOTHYROXINE SODIUM 75 MCG TABLET PO SCH (06:15)
[2021-08-12 08:03] VITALS: BP 99/60
[2021-08-12] MEDS: levETIRAcetam 500 MG TABLET PO SCH ×2 (09:02→21:00)
[2021-08-12] MEDS: REMEDY ESSENTIAL ZINC PASTE 113 GM TOP SCH ×2 (09:03→21:01)
[2021-08-12] MEDS: MIRALAX 17 GM POWD.PACK PO SCH (09:03)
[2021-08-12] MEDS: DEXAMETHASONE 0.5 MG TABLET PO SCH ×2 (09:03→17:02)
[2021-08-12] MEDS: HYDROGEN PEROXIDE 3% 118 ML BOTTLE TP SCH ×2 (09:04→21:01)
--- NOTE | 2021-08-12 14:00 | NUR ---
patient teaching provided about limited water intake due to hyponatremia, explained current levels of Na. patient verbalized understanding of it. continue to monitor closely,and reinforce teaching about water and Na levels.
[2021-08-13] MEDS: DESMOPRESSIN 0.1 MG TABLET PO SCH ×3 (05:55→21:21)
[2021-08-13] MEDS: LEVOTHYROXINE SODIUM 75 MCG TABLET PO SCH (05:56)
[2021-08-13 06:14] LABS: HEMATOCRIT 29.2 % (31.2-41.9); MEAN CORPUSCULAR HEMOGLOBIN 29.6 uug (24.7-32.8); MEAN CORPUSCULAR VOLUME 85.1 fL (75.5-95.3); PLATELET COUNT (AUTO) 333 K/uL (179-408)
[2021-08-13 06:24] LABS: CREATININE 0.6 mg/dL (0.6-1.3); MAGNESIUM 1.8 mg/dL (1.8-2.4); PHOSPHOROUS 2.9 mg/dL (2.5-4.9)
--- NOTE | 2021-08-13 06:45 | NUR ---
Shift End Report: VS stable. No complaint of pain present throughout the night. Slept good. Able to swallow oral medications without any problem. All needs attended and met. Not in respiratory distress. Continue current rehab plan of care.
[2021-08-13 08:00] VITALS: BP 126/62
[2021-08-13] MEDS: DEXAMETHASONE 0.5 MG TABLET PO SCH ×2 (08:05→17:14)
[2021-08-13] MEDS: levETIRAcetam 500 MG TABLET PO SCH ×2 (08:05→20:48)
[2021-08-13] MEDS: MIRALAX 17 GM POWD.PACK PO SCH (08:06)
[2021-08-13] MEDS: REMEDY ESSENTIAL ZINC PASTE 113 GM TOP SCH ×2 (08:06→21:20)
[2021-08-13] MEDS: HYDROGEN PEROXIDE 3% 118 ML BOTTLE TP SCH ×2 (08:07→21:20)
--- NOTE | 2021-08-13 09:00 | NUR ---
call received from attending physician Igor Prince regarding limit the water intake due to hyponatremia, patient made aware about today Na level, and doctors orders to limit water intake, patient agreed to remove the water pitcher from her room, and will call nursing when needed to drink water, will monitor closely. no acute distress noted at this time, patient is alert, oriented x4, and tolerated breakfast well. Addendum: 08/13/21 at 1442 by TREVON CLEARY RN, RN patient placed on seizure precaution
[2021-08-13 09:25] LABS: CREATININE 0.7 mg/dL (0.6-1.3); POTASSIUM 3.6 mmol/L (3.5-5.1)
[2021-08-13 13:53] LABS: CREATININE 0.7 mg/dL (0.6-1.3); POTASSIUM 3.8 mmol/L (3.5-5.1)
[2021-08-13 16:44] VITALS: BP 122/74
--- NOTE | 2021-08-13 18:58 | NUR ---
noted with x1 watery diarrhea, will endorse next shift to reassess the patient if there's a need to hold the morning dose of miralax.
[2021-08-13 20:00] VITALS: BP 93/57
[2021-08-13] MEDS: MELATONIN 3 MG TABLET PO PRN (20:52)
[2021-08-14 04:00] VITALS: BP 101/63
[2021-08-14 06:20] LABS: CREATININE 0.6 mg/dL (0.6-1.3)
[2021-08-14] MEDS: DESMOPRESSIN 0.1 MG TABLET PO SCH ×3 (06:29→22:51)
[2021-08-14] MEDS: LEVOTHYROXINE SODIUM 75 MCG TABLET PO SCH (06:29)
--- NOTE | 2021-08-14 06:48 | NUR ---
Shift End Report: Vs stable. slept well . Fluid oral restriction maintained as ordered due to low sodium of 20 previously now, it went up to 122. Will continue to monitor fluid intake compliant. No complaint presented throughout the night. Track site care done with slight redness noted around the tape area. Will monitor. No significant event reported all night. Continue current rehab plan of care.
[2021-08-14 08:00] VITALS: BP 122/75
[2021-08-14] MEDS: levETIRAcetam 500 MG TABLET PO SCH ×2 (09:08→20:40)
[2021-08-14] MEDS: REMEDY ESSENTIAL ZINC PASTE 113 GM TOP SCH ×2 (09:09→20:41)
[2021-08-14] MEDS: MIRALAX 17 GM POWD.PACK PO SCH (09:09)
[2021-08-14] MEDS: HYDROGEN PEROXIDE 3% 118 ML BOTTLE TP SCH ×2 (09:13→20:41)
--- NOTE | 2021-08-14 11:45 | NUR ---
Received patient on bed, alert, oriented x4, not in respiratory distress, with left sided weakness . No complaint of pain or discomfort. Up in a W/C with PT for rehab therapy tolerated well had a shower with OT will continue to monitor for comfort and safety call light at reach ,bed in lowest position.
[2021-08-14 15:28] VITALS: BP 108/68
[2021-08-14] MEDS: DEXAMETHASONE 0.5 MG TABLET PO SCH (17:19)
[2021-08-14 20:00] VITALS: BP 130/78
[2021-08-15] MEDS: ACETAMINOPHEN 325 MG TABLET PO PRN (02:30)
[2021-08-15 04:00] VITALS: BP 108/64
[2021-08-15] MEDS: DESMOPRESSIN 0.1 MG TABLET PO SCH ×3 (06:02→21:04)
[2021-08-15] MEDS: LEVOTHYROXINE SODIUM 75 MCG TABLET PO SCH (06:02)
[2021-08-15 06:49] LABS: CREATININE 0.7 mg/dL (0.6-1.3); POTASSIUM 4.1 mmol/L (3.5-5.1)
[2021-08-15 08:06] VITALS: BP 83/42
[2021-08-15] MEDS: MIRALAX 17 GM POWD.PACK PO SCH (08:55)
[2021-08-15] MEDS: levETIRAcetam 500 MG TABLET PO SCH ×2 (08:55→20:33)
[2021-08-15] MEDS: HYDROGEN PEROXIDE 3% 118 ML BOTTLE TP SCH ×2 (08:59→20:38)
[2021-08-15] MEDS: REMEDY ESSENTIAL ZINC PASTE 113 GM TOP SCH ×2 (08:59→20:37)
[2021-08-15 09:14] VITALS: BP 118/67
--- NOTE | 2021-08-15 12:59 | NUR ---
INTERDISCIPLINARY TEAM CONFERENCE Addendum: 08/20/21 at 1418 by JAVIER ANDREWS CMG THIS WAS OBSERVED AND DONE ON 08/13/21 13:00
[2021-08-15 16:22] VITALS: BP 97/60
[2021-08-15] MEDS: DEXAMETHASONE 0.5 MG TABLET PO SCH (17:12)
[2021-08-15 20:40] VITALS: BP 92/55
[2021-08-15] MEDS: MELATONIN 3 MG TABLET PO PRN (21:06)
[2021-08-16 04:00] VITALS: BP 100/54
[2021-08-16] MEDS: DESMOPRESSIN 0.1 MG TABLET PO SCH ×3 (05:45→21:01)
[2021-08-16] MEDS: LEVOTHYROXINE SODIUM 75 MCG TABLET PO SCH (06:13)
[2021-08-16 06:33] LABS: CREATININE 0.7 mg/dL (0.6-1.3); POTASSIUM 4.1 mmol/L (3.5-5.1)
--- NOTE | 2021-08-16 06:46 | NUR ---
Pt slept intermittently throughout the night. No acute changes noted. All needs attended. Will endorse to next shift.
[2021-08-16 08:00] VITALS: BP 109/65
[2021-08-16] MEDS: levETIRAcetam 500 MG TABLET PO SCH ×2 (08:01→21:01)
[2021-08-16] MEDS: MIRALAX 17 GM POWD.PACK PO SCH (08:01)
[2021-08-16] MEDS: HYDROGEN PEROXIDE 3% 118 ML BOTTLE TP SCH ×2 (08:02→21:01)
[2021-08-16] MEDS: REMEDY ESSENTIAL ZINC PASTE 113 GM TOP SCH ×2 (08:02→21:02)
--- NOTE | 2021-08-16 10:00 | NUR ---
Received patient on bed,awake, alert,O x4 no shortness of breath noted,at room air O2 sat 94%; able to understand simple directions, able to make her needs known Up in W/C with PT for therapeutic exercises tolerated well ,no C/O of pain. Call light placed within reach. bed in lowest position will continue to monitor for comfort and safety
[2021-08-16 15:09] VITALS: BP 105/57
[2021-08-16] MEDS: DEXAMETHASONE 0.5 MG TABLET PO SCH (17:36)
[2021-08-16 20:26] VITALS: BP 126/84
[2021-08-16] MEDS: MELATONIN 3 MG TABLET PO PRN (21:42)
[2021-08-17 04:53] VITALS: BP 121/80
[2021-08-17] MEDS: DESMOPRESSIN 0.1 MG TABLET PO SCH ×3 (06:12→21:13)
[2021-08-17] MEDS: LEVOTHYROXINE SODIUM 75 MCG TABLET PO SCH (06:12)
[2021-08-17 06:53] LABS: CREATININE 0.7 mg/dL (0.6-1.3); POTASSIUM 3.8 mmol/L (3.5-5.1)
[2021-08-17 08:26] VITALS: BP 93/65
[2021-08-17] MEDS: levETIRAcetam 500 MG TABLET PO SCH ×2 (08:39→20:40)
[2021-08-17] MEDS: MIRALAX 17 GM POWD.PACK PO SCH (08:40)
[2021-08-17] MEDS: HYDROGEN PEROXIDE 3% 118 ML BOTTLE TP SCH ×2 (08:40→20:48)
[2021-08-17] MEDS: REMEDY ESSENTIAL ZINC PASTE 113 GM TOP SCH ×2 (08:40→20:49)
[2021-08-17 15:56] VITALS: BP 93/60
[2021-08-17] MEDS: DEXAMETHASONE 0.5 MG TABLET PO SCH (17:21)
[2021-08-17] MEDS: ACETAMINOPHEN 325 MG TABLET PO PRN (17:37)
--- NOTE | 2021-08-17 19:00 | NUR ---
Received patient on bed, awake, no shortness of breath, no complaint of pain, using diaper. Incontinent for urine at times, continent for bowel movement.
[2021-08-17 20:29] VITALS: BP 98/54
[2021-08-17] MEDS: MELATONIN 3 MG TABLET PO PRN (20:40)
[2021-08-18 04:44] VITALS: BP 106/62
[2021-08-18] MEDS: DESMOPRESSIN 0.1 MG TABLET PO SCH ×3 (05:43→21:05)
[2021-08-18 06:15] LABS: CREATININE 0.8 mg/dL (0.6-1.3); POTASSIUM 3.8 mmol/L (3.5-5.1)
--- NOTE | 2021-08-18 06:26 | NUR ---
Patient slept well. No complaint of pain or discomfort, repositioned for comfort. Needs minima assist when repositioned to bed. Patient in fair condition.
[2021-08-18] MEDS: LEVOTHYROXINE SODIUM 75 MCG TABLET PO SCH (06:33)
[2021-08-18 07:30] VITALS: BP 113/64
[2021-08-18] MEDS: MIRALAX 17 GM POWD.PACK PO SCH (08:30)
[2021-08-18] MEDS: levETIRAcetam 500 MG TABLET PO SCH ×2 (08:31→20:33)
[2021-08-18] MEDS: REMEDY ESSENTIAL ZINC PASTE 113 GM TOP SCH ×2 (08:31→20:39)
[2021-08-18] MEDS: HYDROGEN PEROXIDE 3% 118 ML BOTTLE TP SCH ×2 (08:31→20:38)
[2021-08-18 16:00] VITALS: BP 119/78
[2021-08-18] MEDS: DEXAMETHASONE 0.5 MG TABLET PO SCH (17:00)
--- NOTE | 2021-08-18 18:37 | NUR ---
Patient remained stable during the shift. all meds given, all needs attended. safety measures maintained. call light within reach. frequent visual checks done. will endorse to the next shift for continuity of care.
--- NOTE | 2021-08-18 19:00 | NUR ---
Received patient on bed, awake, alert and oriented x 4, no shortness of breath, denies pain or any discomfort. Safety precautions and use of call light reinforced.
[2021-08-18 20:21] VITALS: BP 91/59
[2021-08-18] MEDS: MELATONIN 3 MG TABLET PO PRN (20:33)
[2021-08-18] MEDS: REMEDY ESSENTIAL ZINC PASTE 113 GM TOP PRN (20:37)
[2021-08-19 04:21] VITALS: BP 92/55
--- NOTE | 2021-08-19 06:00 | NUR ---
Patient slept well, no signs of change in level of consciousness, alert and oriented x4, no complaint of pain. Able to help herself to turn when changing diaper. [facility] taken by lab. Patient in fair condition.
[2021-08-19] MEDS: LEVOTHYROXINE SODIUM 75 MCG TABLET PO SCH (06:05)
[2021-08-19] MEDS: DESMOPRESSIN 0.1 MG TABLET PO SCH ×3 (06:05→21:18)
[2021-08-19 06:32] LABS: CREATININE 0.8 mg/dL (0.6-1.3); POTASSIUM 3.9 mmol/L (3.5-5.1)
[2021-08-19 07:30] VITALS: BP 98/68
[2021-08-19] MEDS: MIRALAX 17 GM POWD.PACK PO SCH (08:23)
[2021-08-19] MEDS: levETIRAcetam 500 MG TABLET PO SCH ×2 (08:23→20:28)
[2021-08-19] MEDS: REMEDY ESSENTIAL ZINC PASTE 113 GM TOP SCH ×2 (08:24→20:29)
[2021-08-19] MEDS: HYDROGEN PEROXIDE 3% 118 ML BOTTLE TP SCH ×2 (08:24→20:32)
[2021-08-19 16:00] VITALS: BP 99/52
[2021-08-19 17:18] LABS: CREATININE 0.8 mg/dL (0.6-1.3); POTASSIUM 3.9 mmol/L (3.5-5.1)
[2021-08-19] MEDS: DEXAMETHASONE 0.5 MG TABLET PO SCH (17:39)
--- NOTE | 2021-08-19 18:24 | NUR ---
Patient remained stable during the shift. all due meds given, all needs attended. safety measures maintained. call light within reach. frequent visual checks done. will endorse to the next shift for continuity of care.
[2021-08-19 20:40] VITALS: BP 124/59
--- NOTE | 2021-08-20 03:40 | NUR ---
Awake alert and oriented x4 Remained stable throughout the shift. Needs attended. Call lam within reach. Fall precautions maintained. Siderails up for safety. VSS. Will monitor patient. No respiratory distress noted. Incontinent of bowel and bladder. No BM noted this shift. All due meds given.
[2021-08-20 04:38] VITALS: BP 109/61
[2021-08-20] MEDS: DESMOPRESSIN 0.1 MG TABLET PO SCH ×3 (06:08→21:46)
[2021-08-20] MEDS: LEVOTHYROXINE SODIUM 75 MCG TABLET PO SCH (06:09)
[2021-08-20 06:56] LABS: CREATININE 0.9 mg/dL (0.6-1.3); POTASSIUM 3.8 mmol/L (3.5-5.1)
[2021-08-20 07:58] VITALS: BP 93/58
[2021-08-20] MEDS: MIRALAX 17 GM POWD.PACK PO SCH (08:20)
[2021-08-20] MEDS: levETIRAcetam 500 MG TABLET PO SCH ×2 (08:20→20:21)
[2021-08-20] MEDS: HYDROGEN PEROXIDE 3% 118 ML BOTTLE TP SCH ×2 (08:21→20:25)
[2021-08-20] MEDS: REMEDY ESSENTIAL ZINC PASTE 113 GM TOP SCH ×2 (08:21→20:24)
--- NOTE | 2021-08-20 11:03 | NUR ---
INTERDISCIPLINARY TEAM CONFERENCE
--- NOTE | 2021-08-20 14:34 | NUR ---
INDIVIDUALIZED PLAN OF CARE THIS WAS OBSERVED AND DONE ON 06/25/21 13:00
--- NOTE | 2021-08-20 14:35 | NUR ---
INDIVIDUALIZED PLAN OF CARE THIS WAS OBSERVED AND DONE ON 08/11/21 13:00
[2021-08-20 16:12] VITALS: BP 126/76
[2021-08-20] MEDS: DEXAMETHASONE 0.5 MG TABLET PO SCH (17:15)
--- NOTE | 2021-08-20 18:18 | NUR ---
The patient remained stable, denies pain. Assisted with all her needs. Kept call light within reach. Tolerated rehab this am. Frequent visual checks done. no distress identified during the shift. All due meds given. all needs attended. safety measures maintained. will endorse to the next shift for continuity of care.
[2021-08-20 20:00] VITALS: BP 102/63
[2021-08-20] MEDS: MELATONIN 3 MG TABLET PO PRN (21:47)
[2021-08-21 04:00] VITALS: BP 93/62
[2021-08-21] MEDS: DESMOPRESSIN 0.1 MG TABLET PO SCH ×3 (05:31→20:36)
[2021-08-21] MEDS: LEVOTHYROXINE SODIUM 75 MCG TABLET PO SCH (06:25)
[2021-08-21 06:43] LABS: POTASSIUM 3.8 mmol/L (3.5-5.1)
--- NOTE | 2021-08-21 06:46 | NUR ---
Shift End Report: Slept well. Vs stable. No significant event reported all night. All needs attended and met. Continue current rehab plan of care.
[2021-08-21] MEDS: levETIRAcetam 500 MG TABLET PO SCH ×2 (08:44→20:34)
[2021-08-21] MEDS: MIRALAX 17 GM POWD.PACK PO SCH (08:44)
[2021-08-21] MEDS: HYDROGEN PEROXIDE 3% 118 ML BOTTLE TP SCH ×2 (08:45→20:37)
[2021-08-21] MEDS: REMEDY ESSENTIAL ZINC PASTE 113 GM TOP SCH ×2 (08:45→20:36)
--- NOTE | 2021-08-21 08:50 | NUR ---
Patient is alert, oriented x4, compliant with medications. No complain of any pain or discomfort. Assisted with her needs. Call light and frequently used items placed within patient's reach.
--- NOTE | 2021-08-21 12:15 | NUR ---
Informed by OT that patient had a seizure episode while doing therapy in the rehab gym, described as drooling, rolling of the eyes and passed out hence rapid response was called. Per OT patient regained consciousness and brought back to her room. She is alert, oriented x 4, not in any form of distress, on room air. She denies any pain or discomfort. BP 105/75, HR 109, RR 19, O2 sat 96% at RA, blood sugar 87. Called Dr. Igor Wakefield's office and his cellphone but no answer, so left a voicemail. Awaiting for callback.
--- NOTE | 2021-08-21 12:57 | NUR ---
No call back received from Dr. Igor Wakefield so follow up call was done but still no answer from both his office and his cellphone and again left a voicemail. Also sent a text message to Dr. Wakefield. Awaiting for MD's reply. Patient remains alert, vital signs stable, no noted change of condition at this time.
[2021-08-21] MEDS: IV D5W 1000ML 1,000 ML IV PRN (14:19)
[2021-08-21 15:14] LABS: CREATININE 0.9 mg/dL (0.6-1.3); POTASSIUM 3.6 mmol/L (3.5-5.1)
--- NOTE | 2021-08-21 15:45 | NUR ---
Notified Dr. Qureshi regarding seizure episode and said OK to do neuro consult with Dr. Sanchez. Dr. Sanchez in the unit, informed MD regarding patient's case and the seizure episode during therapy and per MD he knows the patient and will see her.
--- NOTE | 2021-08-21 17:00 | NUR ---
Dr. Igor Wakefield saw the patient, update given to MD especially seizure episode and current labs. MD ordered changes with desmopressin dose to 0.15mg every morning, 0.1mg every 1700 and 1900 to start at HS.
[2021-08-21] MEDS: DEXAMETHASONE 0.5 MG TABLET PO SCH (18:00)
[2021-08-21 20:18] VITALS: BP 108/64
[2021-08-21] MEDS: MELATONIN 3 MG TABLET PO PRN (20:43)
[2021-08-22] MEDS: IV D5W 1000ML 1,000 ML IV PRN (00:43)
[2021-08-22 04:08] VITALS: BP 107/60
[2021-08-22] MEDS: LEVOTHYROXINE SODIUM 75 MCG TABLET PO SCH (05:56)
[2021-08-22 06:51] LABS: POTASSIUM 3.8 mmol/L (3.5-5.1)
--- NOTE | 2021-08-22 06:52 | NUR ---
Shift End Report: VS stable. No seizure activity reported. All needs attended and met. IVF infusing well on right hand, no s/s of infiltration. Continue current rehab plan of care.
[2021-08-22 07:41] VITALS: BP 118/64
[2021-08-22] MEDS: levETIRAcetam 500 MG TABLET PO SCH ×2 (10:17→20:26)
[2021-08-22] MEDS: DESMOPRESSIN 0.1 MG TABLET PO SCH ×3 (10:17→20:29)
[2021-08-22] MEDS: MIRALAX 17 GM POWD.PACK PO SCH (10:21)
[2021-08-22] MEDS: REMEDY ESSENTIAL ZINC PASTE 113 GM TOP SCH ×2 (10:22→20:29)
[2021-08-22] MEDS: HYDROGEN PEROXIDE 3% 118 ML BOTTLE TP SCH ×2 (10:22→20:30)
--- NOTE | 2021-08-22 10:34 | NUR ---
OT IN ROOM TO GET HER UP TO THERAPY. ONCE OUT OF BED TO W/C SHE BECAME NON RESPONSIVE, DAZING. AFTER FEW SECONDS SHE RESPONDS ND THEN DAZING AGAIN. SHE WAS PUT BACK TO BED WHEN LYING DOWN BECAME RESPONSIVE AND AWAKE. NOW IN BED RESTING. ABLE TO MAKE NEEDS KNOWN. VSS 89/56-92-18 SAT 95% ON ROOM AIR.
[2021-08-22 15:16] LABS: POTASSIUM 3.7 mmol/L (3.5-5.1)
[2021-08-22 16:10] VITALS: BP 107/61
[2021-08-22] MEDS: DEXAMETHASONE 0.5 MG TABLET PO SCH (17:35)
[2021-08-22] MEDS: ACETAMINOPHEN 325 MG TABLET PO PRN (19:37)
[2021-08-22 20:22] VITALS: BP 108/71
[2021-08-22] MEDS: MELATONIN 3 MG TABLET PO PRN (20:44)
--- NOTE | 2021-08-23 03:58 | NUR ---
Resting in bed upon initial rounds. AAOx4 No acute distress noted. All needs attended and met. VSS Tolerated all po meds well. Kept comfortable. No seizure activity noted. Fall precautions maintained. Incontinent of bowel and bladder. Kept clean and dry. No BM noted this shift. Will monitor patient.
[2021-08-23 04:50] VITALS: BP 103/63
[2021-08-23] MEDS: LEVOTHYROXINE SODIUM 75 MCG TABLET PO SCH (06:10)
[2021-08-23 08:00] VITALS: BP 98/63
[2021-08-23] MEDS: DESMOPRESSIN 0.1 MG TABLET PO SCH ×3 (08:40→20:23)
[2021-08-23] MEDS: levETIRAcetam 500 MG TABLET PO SCH ×2 (08:41→20:21)
[2021-08-23] MEDS: MIRALAX 17 GM POWD.PACK PO SCH (08:41)
[2021-08-23] MEDS: REMEDY ESSENTIAL ZINC PASTE 113 GM TOP SCH ×2 (08:42→20:27)
[2021-08-23] MEDS: HYDROGEN PEROXIDE 3% 118 ML BOTTLE TP SCH ×2 (08:42→20:27)
[2021-08-23 09:13] LABS: POTASSIUM 3.4 mmol/L (3.5-5.1)
[2021-08-23] MEDS ORDERED: POTASSIUM CHLORIDE 20 MEQ TAB.PRT.SR PO ONE (10:30)
--- NOTE | 2021-08-23 10:31 | NUR ---
Received a called from Dr. Igor Wakefield with order to D/C the IV hydration D5W at 100 ml and give KCL 40 MEQ for Potassium lab result of 3.4 on today labs . No seizure episode noted at this time Up on W/C with PT pleasant no c/o of pain or any discomfort safety precaution in place
[2021-08-23 16:48] VITALS: BP 100/49
[2021-08-23] MEDS: DEXAMETHASONE 0.5 MG TABLET PO SCH (17:12)
[2021-08-23] MEDS: ACETAMINOPHEN 325 MG TABLET PO PRN (18:59)
[2021-08-23 20:16] VITALS: BP 116/76
--- NOTE | 2021-08-23 21:27 | NUR ---
AAOx4 Watching TV upon initial rounds. Needs attended. Kept comfortable. VSS. Seizures precautions maintained. Siderails up for safety. Call lam within reach. Took pills without difficulty. No complaints presented during shift. Will monitor patient.
[2021-08-24 04:34] VITALS: BP 107/60
[2021-08-24] MEDS: LEVOTHYROXINE SODIUM 75 MCG TABLET PO SCH (06:08)
[2021-08-24 08:00] VITALS: BP 90/66
[2021-08-24] MEDS: levETIRAcetam 500 MG TABLET PO SCH ×2 (08:16→20:38)
[2021-08-24] MEDS: DESMOPRESSIN 0.1 MG TABLET PO SCH ×3 (08:16→20:39)
[2021-08-24] MEDS: REMEDY ESSENTIAL ZINC PASTE 113 GM TOP SCH ×2 (08:16→20:41)
[2021-08-24] MEDS: MIRALAX 17 GM POWD.PACK PO SCH (08:16)
[2021-08-24] MEDS: HYDROGEN PEROXIDE 3% 118 ML BOTTLE TP SCH ×2 (08:17→20:41)
[2021-08-24 10:17] LABS: CREATININE 0.8 mg/dL (0.6-1.3); POTASSIUM 3.3 mmol/L (3.5-5.1)
[2021-08-24 16:47] VITALS: BP 120/82
[2021-08-24] MEDS: DEXAMETHASONE 0.5 MG TABLET PO SCH (17:01)
--- NOTE | 2021-08-24 19:00 | NUR ---
Received patient on bed, alert, no shortness of breath noted, no complaint of pain or discomfort. Bed alarm on, other safety precautions provided.
[2021-08-24 20:15] VITALS: BP 112/65
[2021-08-24] MEDS: ACETAMINOPHEN 325 MG TABLET PO PRN (20:38)
[2021-08-24] MEDS: MELATONIN 3 MG TABLET PO PRN (20:38)
[2021-08-25 04:38] VITALS: BP 102/48
--- NOTE | 2021-08-25 05:20 | NUR ---
Patient slept well at night, dressing of tracheostomy site done with hydrogen peroxide, trach site dry and almost closed. Repositioned done.
--- NOTE | 2021-08-25 05:22 | NUR ---
Patient slept well, n0 complaint of pain, frequent visual check done, safety precautions provided. Repositioned for comfort. No significant unusualities noted. Patient in fair condition.
[2021-08-25] MEDS: LEVOTHYROXINE SODIUM 75 MCG TABLET PO SCH (06:02)
[2021-08-25 06:55] LABS: HEMATOCRIT 29.5 % (31.2-41.9); MEAN CORPUSCULAR HEMOGLOBIN 29.5 uug (24.7-32.8); MEAN CORPUSCULAR VOLUME 88.2 fL (75.5-95.3); PLATELET COUNT (AUTO) 474 K/uL (179-408)
[2021-08-25 07:12] LABS: CREATININE 0.9 mg/dL (0.6-1.3); MAGNESIUM 2.1 mg/dL (1.8-2.4); PHOSPHOROUS 3.9 mg/dL (2.5-4.9); POTASSIUM 3.8 mmol/L (3.5-5.1)
[2021-08-25 07:31] VITALS: BP 92/58
[2021-08-25] MEDS: levETIRAcetam 500 MG TABLET PO SCH ×2 (08:52→20:27)
[2021-08-25] MEDS: DESMOPRESSIN 0.1 MG TABLET PO SCH ×3 (08:52→20:27)
[2021-08-25] MEDS: MIRALAX 17 GM POWD.PACK PO SCH (08:53)
[2021-08-25] MEDS: REMEDY ESSENTIAL ZINC PASTE 113 GM TOP SCH ×2 (08:53→20:27)
[2021-08-25] MEDS: HYDROGEN PEROXIDE 3% 118 ML BOTTLE TP SCH ×2 (08:53→20:27)
[2021-08-25 16:00] VITALS: BP 108/71
[2021-08-25] MEDS: DEXAMETHASONE 0.5 MG TABLET PO SCH (17:26)
--- NOTE | 2021-08-25 18:35 | NUR ---
The patient remained stable during the shift. no seizure activity noted. Denies pain. Assisted with all her needs. Kept call light within reach. Encouraged out of bed for perfusion, turning and repositioned done when in bed. Frequent visual checks done. no distress identified during the shift. all needs attended. safety measures maintained. Seizure precaution maintained. will endorse to the next shift for continuity of care.
[2021-08-25 20:15] VITALS: BP 108/61
[2021-08-25] MEDS: MELATONIN 3 MG TABLET PO PRN (21:55)
[2021-08-26 04:18] VITALS: BP 95/52
[2021-08-26] MEDS: LEVOTHYROXINE SODIUM 75 MCG TABLET PO SCH (06:13)
[2021-08-26 07:09] LABS: HEMATOCRIT 29.5 % (31.2-41.9); MEAN CORPUSCULAR HEMOGLOBIN 29.5 uug (24.7-32.8); MEAN CORPUSCULAR VOLUME 87.7 fL (75.5-95.3); PLATELET COUNT (AUTO) 438 K/uL (179-408)
[2021-08-26 07:36] LABS: CREATININE 0.8 mg/dL (0.6-1.3); MAGNESIUM 2.2 mg/dL (1.8-2.4); PHOSPHOROUS 4.1 mg/dL (2.5-4.9); POTASSIUM 3.8 mmol/L (3.5-5.1)
[2021-08-26] MEDS: levETIRAcetam 500 MG TABLET PO SCH ×2 (09:28→20:59)
[2021-08-26] MEDS: MIRALAX 17 GM POWD.PACK PO SCH (09:29)
[2021-08-26] MEDS: DESMOPRESSIN 0.1 MG TABLET PO SCH ×3 (09:31→20:59)
[2021-08-26] MEDS: REMEDY ESSENTIAL ZINC PASTE 113 GM TOP SCH ×2 (09:33→21:00)
[2021-08-26] MEDS: HYDROGEN PEROXIDE 3% 118 ML BOTTLE TP SCH ×2 (09:35→21:02)
[2021-08-26] MEDS: DEXAMETHASONE 0.5 MG TABLET PO SCH (17:55)
[2021-08-26 20:47] VITALS: BP 103/65
[2021-08-26] MEDS: MELATONIN 3 MG TABLET PO PRN (21:16)
--- NOTE | 2021-08-27 04:19 | NUR ---
Quiet night. Remained in stable condition. VSS. Generalized weakness noted. VSS. Kept comfortable. Incontinent of bowel and bladder. Kept clean and dry. No BM noted this shift. VSS. Denies any pain nor any discomfort. No seizure activity noted. Seizure precautions maintained. Will monitor patient.
[2021-08-27 04:21] VITALS: BP 106/63
[2021-08-27] MEDS: LEVOTHYROXINE SODIUM 75 MCG TABLET PO SCH (06:09)
[2021-08-27 07:33] LABS: CREATININE 0.7 mg/dL (0.6-1.3); PHOSPHOROUS 4.4 mg/dL (2.5-4.9); POTASSIUM 3.8 mmol/L (3.5-5.1)
[2021-08-27 07:36] LABS: HEMATOCRIT 30.2 % (31.2-41.9); MEAN CORPUSCULAR HEMOGLOBIN 29.5 uug (24.7-32.8); MEAN CORPUSCULAR VOLUME 88.2 fL (75.5-95.3); PLATELET COUNT (AUTO) 442 K/uL (179-408)
[2021-08-27 08:00] VITALS: BP 108/70
[2021-08-27] MEDS: levETIRAcetam 500 MG TABLET PO SCH ×2 (09:31→20:51)
[2021-08-27] MEDS: REMEDY ESSENTIAL ZINC PASTE 113 GM TOP SCH ×2 (09:32→20:53)
[2021-08-27] MEDS: MIRALAX 17 GM POWD.PACK PO SCH (09:32)
[2021-08-27] MEDS: HYDROGEN PEROXIDE 3% 118 ML BOTTLE TP SCH ×2 (09:33→20:54)
[2021-08-27] MEDS: DESMOPRESSIN 0.1 MG TABLET PO SCH ×3 (09:34→20:52)
[2021-08-27 16:35] VITALS: BP 126/77
[2021-08-27] MEDS: DEXAMETHASONE 0.5 MG TABLET PO SCH (17:50)
[2021-08-27 20:00] VITALS: BP 97/52
[2021-08-27] MEDS: MELATONIN 3 MG TABLET PO PRN (21:02)
[2021-08-28 04:00] VITALS: BP 97/53
--- NOTE | 2021-08-28 04:36 | NUR ---
AAOx4 Quiet night. Tolerated po meds well. No seizure activity noted. Kept comfortable. Denies any pain nor any discomfort. VSS. All needs attended. Will monitor patient. Denies any pain nor any discomfort.
[2021-08-28] MEDS: LEVOTHYROXINE SODIUM 75 MCG TABLET PO SCH (06:08)
[2021-08-28 06:57] LABS: HEMATOCRIT 30.9 % (31.2-41.9); MEAN CORPUSCULAR HEMOGLOBIN 29.1 uug (24.7-32.8); MEAN CORPUSCULAR VOLUME 88.8 fL (75.5-95.3); PLATELET COUNT (AUTO) 461 K/uL (179-408)
[2021-08-28 07:13] LABS: CREATININE 0.8 mg/dL (0.6-1.3); MAGNESIUM 2.1 mg/dL (1.8-2.4); PHOSPHOROUS 4.8 mg/dL (2.5-4.9); POTASSIUM 3.7 mmol/L (3.5-5.1)
[2021-08-28 07:43] VITALS: BP 113/82
[2021-08-28] MEDS: DESMOPRESSIN 0.1 MG TABLET PO SCH ×3 (09:17→20:40)
[2021-08-28] MEDS: levETIRAcetam 500 MG TABLET PO SCH ×2 (09:17→20:37)
[2021-08-28] MEDS: MIRALAX 17 GM POWD.PACK PO SCH (09:17)
[2021-08-28] MEDS: REMEDY ESSENTIAL ZINC PASTE 113 GM TOP SCH ×2 (09:18→20:41)
[2021-08-28] MEDS: HYDROGEN PEROXIDE 3% 118 ML BOTTLE TP SCH ×2 (09:35→20:41)
[2021-08-28 15:13] VITALS: BP 109/69
--- NOTE | 2021-08-28 16:25 | NUR ---
Patient remained stable during the shift. no seizure activity noted. Denies pain. Assisted with all her needs. Kept call light within reach. Up out of bed for PT therapy, turning and repositioned done when in bed. Frequent visual checks done. no distress identified during the shift. Pt schedule to be D/C tomorrow prescription given to her mother as per MD ordered.all needs attended. safety measures maintained. Seizure precaution maintained. will endorse to the next shift for continuity of care.
[2021-08-28] MEDS: DEXAMETHASONE 0.5 MG TABLET PO SCH (17:17)
[2021-08-28 20:00] VITALS: BP 94/51
[2021-08-28] MEDS: ACETAMINOPHEN 325 MG TABLET PO PRN (20:02)
[2021-08-28] MEDS: MELATONIN 3 MG TABLET PO PRN (20:37)
[2021-08-29 04:14] VITALS: BP 114/71
[2021-08-29] MEDS: LEVOTHYROXINE SODIUM 75 MCG TABLET PO SCH ×2 (06:34→06:57)
[2021-08-29 07:44] VITALS: BP 97/52
[2021-08-29] MEDS: DESMOPRESSIN 0.1 MG TABLET PO SCH (09:12)
[2021-08-29] MEDS: levETIRAcetam 500 MG TABLET PO SCH (09:13)
[2021-08-29] MEDS: REMEDY ESSENTIAL ZINC PASTE 113 GM TOP SCH (09:13)
[2021-08-29] MEDS: MIRALAX 17 GM POWD.PACK PO SCH (09:13)
[2021-08-29] MEDS: HYDROGEN PEROXIDE 3% 118 ML BOTTLE TP SCH (09:14)
--- NOTE | 2021-08-29 15:07 | NUR ---
Patient stable during the shift. AAOX 4 able to let her needs known, no seizure activity noted. Denies pain. Up out of bed with PT for therapy today. Pt discharge home with home health services. Discharge instructions , all personal belongings and medical equipment given to family mother Janeen. ID band was removed pt left in stable condition via [place] call a car transport, accompany by sister and transportation personnel
--- NOTE | 2021-08-29 15:16 | NUR ---
INTERDISCIPLINARY TEAM CONFERENCE
[2022-05-19] MEDS ORDERED: TUBERCULIN,PURIF.PROT.DERIV. 5 TU/0.1 ML TEST ID SCH (09:00)
== END 2021-08-29 15:05 | disposition home health service (06) | DRG 58 ==
PROVIDERS: ADMIT Physical Medicine & Rehabilitation Pain Medicine; ATTEND Physical Medicine & Rehabilitation Pain Medicine
DX: I69.354 Hemiplegia and hemiparesis following cerebral infarction affecting left non-dominant side (principal); J96.01 Acute respiratory failure with hypoxia; G93.49 Other encephalopathy; I69.398 Other sequelae of cerebral infarction; Z93.0 Tracheostomy status; Z98.890 Other specified postprocedural states; R13.10 Dysphagia, unspecified; Z86.14 Personal history of Methicillin resistant Staphylococcus aureus infection; D64.9 Anemia, unspecified; E23.0 Hypopituitarism; G72.9 Myopathy, unspecified; E87.1 Hypo-osmolality and hyponatremia; E87.0 Hyperosmolality and hypernatremia; E87.6 Hypokalemia; I95.1 Orthostatic hypotension; R56.9 Unspecified convulsions; Z79.899 Other long term (current) drug therapy; Z86.718 Personal history of other venous thrombosis and embolism; Z95.828 Presence of other vascular implants and grafts
CPT/HCPCS: 36415; 71045; 83735; 84100; 85025; 97161; 97535-GO-CO; A4663; J7030; J7060; J7070; J8540